=== PATIENT | female | born 1970 | race Caucasian/White ===

== ENCOUNTER 2023-12-23 11:32 | Outpatient (CLI) | payer BC, SELFPAY ==
--- NOTE | 2023-12-23 | XR_ITS ---
FINAL REPORT CLINICAL HISTORY: LUMBAGO WITH SCIATICA, RT SIDE leg pain FINDINGS: Five views were obtained. There is no acute fracture. Alignment is within normal limits. The disc spaces are maintained. IMPRESSION: No acute process. Reviewed, Interpreted and Dictated by Ita Lassiter MD Transcribed by Airam Brown Authenticated and [facility]
== END 2023-12-23 23:59 | disposition home or self-care (01) ==
LOC: RAD 11:38
PROVIDERS: PCP Family Medicine; Visit Provider Family Medicine
DX: M54.41 Lumbago with sciatica, right side (principal)
CPT/HCPCS: 72110

== ENCOUNTER 2023-12-27 16:41 | Outpatient (CLI) | payer BC, SELFPAY | END 2023-12-27 23:59 | disposition home or self-care (01) | LOC: RAD 16:42 | PROVIDERS: PCP Family Medicine; Visit Provider Family Medicine | DX: Z12.31 Encounter for screening mammogram for malignant neoplasm of breast (principal) ==

== ENCOUNTER 2024-06-28 12:40 | Outpatient (CLI) | payer BC, SELFPAY ==
--- NOTE | 2024-06-28 12:47 | XR_ITS ---
FINAL REPORT CLINICAL HISTORY: PAIN FINDINGS: Right wrist Three views were obtained. There is no fracture or dislocation. There are mild degenerative changes at the radial aspect of the wrist. No soft tissue abnormality is identified. IMPRESSION: Mild degenerative changes as above. Reviewed, Interpreted and Dictated by Evaristo Stark III, MD Transcribed by Airam Brown Authenticated and . [facility]
--- NOTE | 2024-06-28 12:47 | XR_ITS ---
FINAL REPORT CLINICAL HISTORY: PAIN FINDINGS: Left wrist Three views were obtained. There is no fracture or dislocation. There are mild degenerative changes of the first carpometacarpal joint. No soft tissue abnormality is identified. IMPRESSION: Mild degenerative changes as above. Reviewed, Interpreted and Dictated by Evaristo Stark III, MD Transcribed by Airam Brown Authenticated and [facility]
== END 2024-06-28 23:59 | disposition home or self-care (01) ==
LOC: RAD 12:44
PROVIDERS: PCP Family Medicine; Visit Provider Orthopaedic Surgery
DX: M25.531 Pain in right wrist (principal); M25.532 Pain in left wrist
CPT/HCPCS: 73110

== ENCOUNTER 2024-12-22 13:22 | Outpatient (CLI) | payer BC, SELFPAY ==
[2024-12-22 13:35] VITALS: BMI 41.1
--- NOTE | 2024-12-22 13:48 | ECG_ITS ---
APPROVED REPORT Exam: Resting ECG HR:103 bpm ECG Measurements Heart Rate 103 AXES WI 162 P 52 QRSd 80 QRS 0 QT 325 T 35 QTc 385 Conclusion SINUS TACHYCARDIA LOW QRS VOLTAGE IN PRECORDIAL LEADS [QRS DEFLECTION < 1.0 mV IN CHEST LEADS] ABNORMAL RHYTHM ECG UNCONFIRMED REPORT Electronically signed by : Abdon Richardson MD 12/24/2024 08:03:12
[2024-12-22 14:01] LABS: Basophils # 0.1 K/mm3 (0-0.2); Basophils % 0.6 % (0.1-2.0); Eosinophils # 0.1 Kmm3 (0.0-0.4); Eosinophils % 0.9 % (0.1-12.0); Hematocrit 43.2 % (37.0-47.0); Hemoglobin 14.4 g/dL (12.2-16.2); Lymphocytes % 17.9 % (10-50); Mean Corpuscular HGB Conc 33.3 g/dL (31.8-35.4); Mean Corpuscular Hemoglobin 29.4 pg (27.0-31.2); Mean Corpuscular Volume 88.3 fl (81-99); Mean Platelet Volume 9.9 fl (7.4-10.4); Monocytes # 0.6 K/mm3 (0.1-1.0); Monocytes % 5.5 % (1.7-9.3); Neutrophils # 8.5 K/mm3 (1.8-7.8); Neutrophils % 74.6 % (37.0-80.0); Nucleated Red Blood Cells # 0 10^3/uL; Nucleated Red Blood Cells % 0 %; Platelet Count 337 K/mm3 (142-424); Red Blood Count 4.89 M/mm3 (4.20-5.40); Red Cell Distribution Width 12.7 % (11.5-17.5); Red Cell Distribution Width-SD 41.3 fL; White Blood Count 11.4 K/mm3 (4.8-10.8)
[2024-12-22 14:14] LABS: Anion Gap 8.6 mEq/L (5-15); Blood Urea Nitrogen 12 mg/dl (7-17); Calcium 10.6 mg/dl (8.4-10.2); Carbon Dioxide 26 mmol/L (22.0-30.0); Chloride 106 mmol/L (98-107); Creatinine Clearance Estimated 150 mL/min (50-200); Estimated Glomerular Filt Rate 88 ml/min (>60); GFR (African American) 106 ML/MIN (>60); Glucose 87 mg/dl (74-100); Potassium 3.6 mmoL/L (3.5-5.1); Sodium 137 mmol/L (136-145)
== END 2024-12-22 23:59 | disposition home or self-care (01) ==
LOC: PREOP 13:23
PROVIDERS: PCP Family Medicine; Visit Provider Orthopaedic Surgery
DX: Z01.810 Encounter for preprocedural cardiovascular examination (principal); Z01.812 Encounter for preprocedural laboratory examination; R00.0 Tachycardia, unspecified; R94.31 Abnormal electrocardiogram [ECG] [EKG]
CPT/HCPCS: 80048; 85025; 93005

== ENCOUNTER 2024-12-27 08:27 | Day surgery (SDC) | payer BC, SELFPAY ==
[2024-12-22 14:50] VITALS: BMI 41.1
[2024-12-27 09:09] VITALS: BP 132/79; PULSE 69; RESP 17; TEMP 36.3; O2SAT 99
[2024-12-27] MEDS: LACTATED RINGERS 1000ML 1,000 ML 100 ML IV (09:18)
--- NOTE | 2024-12-27 10:08 | P.PNANES_ITS ---
[facility] Disclaimer: The information contained in this section may have been updated after the patient was seen, as this information can be updated by other users. Medical History CLAUDINE on CPAP Hypertension Surgical History History of hysterectomy History of anal fistulotomy History of tubal ligation History of section History of eye surgery Family History Other Family history of cancer Family history of diabetes mellitus Social History Smoking Status: Never smoker alcohol intake: never substance use type: denies use current occupational status: unemployed Travel in the last 8 weeks?: None [facility] Anesthesia Checklist Patient Identification Patient Identification: Arm Band Structural Data Admitted From: Home Planned Operative Procedure/s: Right Carpal Tunnel Release Consent for Planned Operative Procedure(s) Verified: Yes Verified Documents: Surgical Consent and History and Physical NPO Status Verified Time NPO: 00:00 Additional verifications Anesthesia Reactions: No Hx Blood Transfusions: No Blood Transfusion Reaction: No Airway Assessment Mallampati Score:: Class II C-Spine Mobility Assessed: Yes TMJ Mobility Assessed: Yes Dentition: Good Dentition Neurological Assessment Level of Consciousness: Awake, Alert and Appropriate Anesthesia Plan Anesthesia Risk discussed: Yes Anesthesia Plan: Verified ASA Class: III Anesthesia Type: General
[2024-12-27] MEDS: LIDOCAINE 1% W/EPI 1:100,000 20ML VIAL 20 ML (10:53)
[2024-12-27] MEDS: CEFAZOLIN SODIUM 2 GM in 0.9 % SODIUM CHLORIDE 100 ML IV (10:54)
[2024-12-27 11:16] VITALS: BP 123/77; PULSE 72; RESP 16; TEMP 36.1; O2SAT 94
--- NOTE | 2024-12-27 11:22 | EXP.OP.NOTE ---
Date of procedure: 12/27/24 Pre-op Diagnosis:: Right carpal tunnel syndrome Post-op Diagnosis:: Same Procedure performed:: Right endoscopic carpal tunnel release Surgeon:: Lukas Pinon DO Cat Operator(s):: [employer] Anesthesia: MAC and local Estimated blood loss (mL): 0 Operative findings:: See dictation Operative note:: Patient identified preoperatively. Right wrist marked with yes my initials. Transported operative suite placed upon operating bed. Patient given sedation the right upper extremity was prepped and draped in normal sterile fashion. Once prepped and draped final operative timeout performed to identify proper patient procedure and extremity. Everyone involved in the case agreed. There is no counter indications to beginning. She did receive preoperative antibiotics. Marking pen was used to make planned incision over the volar wrist crease. Esmarch was used to exsanguinate the extremity. Pneumatic tourniquet inflated to 250 mmHg. Skin knife is used to incise through skin retractors were placed and dissection was taken down to identify the most proximal aspect the transverse carpal ligament once identified the smaller dilator followed by the larger dilator was placed into the carpal tunnel. This was followed with a 4.0 mm sled into the carpal tunnel for the camera the camera was introduced in the transverse carpal ligament clearly seen superiorly within the [id number]. Hook was utilized to identify the most distal aspect the transverse carpal ligament rasp was used to remove soft tissue from the undersurface and a hook blade was placed for full release of the transverse carpal ligament under direct visualization. Once released irrigation performed. Local anesthesia injected around the incision site. Incision closed with Monocryl stitch Steri-Strips sterile hand dressing placed. Patient waken sedation taken recovery in stable condition. Condition: stable Disposition: PACU Complications:: None apparent
[2024-12-27 11:31] VITALS: BP 100/59; PULSE 69; RESP 16; O2SAT 94
[2024-12-27 11:46] VITALS: BP 120/64; PULSE 65; RESP 16; O2SAT 97
== END 2024-12-27 11:55 | disposition home or self-care (01) ==
PROVIDERS: PCP Family Medicine; Visit Provider Orthopaedic Surgery
PROC: (CPT 64721; principal; 2024-12-27 10:15)
DX: G56.01 Carpal tunnel syndrome, right upper limb (principal)
CPT/HCPCS: 29848; 96374; J0690; J2250; J3010; J7120

== ENCOUNTER 2025-02-07 10:44 | Outpatient (CLI) | payer BC, SELFPAY ==
--- OUTSIDE RECORDS SUMMARY | 2025-01-01 12:40 | XMS_ITS | Encounter Summary ---
Author Organization [facility] Address [address] [place] [address] Care Team Providers Care Marine Resource Economist Name Role Phone Megan Fitzgerald MD Primary Care Provider [phone] Reason for Visit * Reason Comments Follow-up Follow Up: Medicatio n, Pt did not refill Mobic and has stopped taking Lasix. Needs bp and other medication refill. Care Gap Closure Pt declines Covid va ccine Encounter Details Date Type Department Care Team (Latest Contact Info) Description 01/01/2025 12:40 PM EDT Office Visit [facility] [address] [place] [address] Megan Fitzgerald MD [address] [place] [address] Essential (primary) hypertension (Primary Dx); Hyperlipidemia, unspecified hyperlipidemia type; Need for shingles vaccine; Edema of both lower extremities; Chronic pain of right lower extremity Social History Tobacco Use Types Packs/Day Years Used Date Smoking Tobacco: Never Smokeless Tobacco: Never Alcohol Use Standard Drinks/Week Comments Not Currently 0 (1 standard drink = 0.6 oz pur e alcohol) Humiliation, Afraid, Rape, and Kick questionnair e Answer Date Recorded Within the last year, have y ou been afraid of your partner or ex-partner? No 10/24/2024 Within the last year, have y ou been humiliated or emotionally abused in other ways by your partner or ex-partner? No Within the last year, have y ou been kicked, hit, slapped, or otherwise physically hurt by your partner or ex-partner? No 10/24/2024 Within the last year, have y ou been raped or forced to have any kind of sexual activity by your partner or ex-partner? No 10/24/2024 PHQ-2 Answer Date Recorded Patient Health Questionnaire-2 Score 0 01/01/2025 Hunger Vital Sign Answer Date Recorded Within the past 12 months, y ou worried that your food would run out before you got the money to buy more. Never true 10/25/19 25 Within the past 12 months, t he food you bought just didn't last and you didn't have money to get more. Never true 10/24/2024 PRAPARE - Transportation Answer Date Re corded In the past 12 months, has l ack of transportation kept you from medical appointments or from getting medications? No 11/2024 In the past 12 months, has l ack of transportation kept you from meetings, work, or from getting things needed for daily living? No 10/24/2024 Housing Stability Vital Sign Answer Padilla e Recorded In the last 12 months, was t here a time when you were not able to pay the mortgage or rent on time? No 06/21/2024 In the last 12 months, how many places have you lived? 2 06/21/2024 In the last 12 months, was t here a time when you did not have a steady place to sleep or slept in a snf (including now)? No 06/21/2024 PHQ-9 Answer Date Recorded Patient Health Questionnaire-9 Score 0 01/01/2025 Housing Stability Vital Sign Answer Padilla e Recorded In the last 12 months, was t here a time when you were not able to pay the mortgage or rent on time? No 10/24/2024 In the past 12 months, how m any times have you moved where you were living? 0 10/24/2024 At any time in the past 12 m [facility], were you homeless or living in a snf (including now)? No 10/24/2024 Utilities Answer Date Recorded In the past 12 months has th e electric, gas, oil, or water company threatened to shut off services in your home? No 10/24/2024 Comments No Sex and Gender Information Value Date Recorded Sex Assigned at Not on file Legal Sex Female 3:40 PM EDT Gender Identity Not on file Sexual Orientation Not on file documented as of this encounter Last Filed Vital Signs Vital Sign Reading Time Taken Comments Blood Pressure 106/70 01/01/2025 12:31 PM EDT Pulse 68 01/01/2025 12:31 PM EDT Temperature 36.8 C (98.2 F) 01/01/2025 12:31 PM EDT Respiratory Rate 18 01/01/2025 12:31 PM EDT Oxygen Saturation 100% 01/01/2025 12:31 PM EDT Inhaled Oxygen Concentration - - Weight 105 kg (230 lb 13.2 oz) 01/01/2025 12:31 PM EDT Height 157.5 cm (5' 2 ) 01/01/2025 12:31 PM EDT Body Mass Index 42.22 01/01/2025 12:31 PM EDT documented in this encounter Functional Status * Over the past 2 weeks, how often have you been bothered by any of the following problems? Question Answer Date of Assessment Author Little interest or pleasure in doing things Not at all 01/01/2025 12:40 PM EDT Yesenia Olsen Feeling down, depressed, or hopeless Not at all 01/01/2025 12:40 PM EDT Yesenia Olsen Patient Health Questionnaire -2 Score 0 01/01/2025 12:40 PM EDT Yesenia Olsen * Question Answer Date of Assessment Author Trouble falling or staying asleep, or sleeping too much Not at all 01/01/2025 12:40 PM EDT Yesenia Olsen Feeling tired or having bryson le energy Not at all 01/01/2025 12:40 PM EDT Yesenia Olsen Poor appetite or overeating Not at all 01/01/2025 12 :40 PM EDT Yesenia Olsen Feeling bad about yourself - or that you are a failure or have let yourself or your family down Not at all 01/01/2025 12:40 PM EDT Yesenia Eduardo Trouble concentrating on thi ngs, such as reading the newspaper or watching television Not at all 01/01/2025 12:40 PM EDT Yesenia Olsen Moving or speaking so slowly that other people could have noticed? Or the opposite - being so fidgety or restless that you have been moving around a lot more than usual. Not at all 01/01/2025 12:40 PM EDYesenia Vargas Thoughts that you would be better off or hurting yourself in some way Not at all 01/01/2025 12:40 PM EDYesenia Vargas Patient Health Questionnaire -9 Score 0 01/01/2025 12:40 PM EDT Yesenia Olsen * Calculated C-SSRS Risk Score (Lifetime/Recent) Answer Date of Assessment Author No Risk Indicated 01/01/2025 12:41 PM Yesenia Rea * If you checked off any problems on this questionnaire so far, Question Answer Date of Assessment Author How difficult have these problems made it for you to do your work, take care of things at home, or get along with other people? Not difficult at all 01/01/2025 12:40 PM Yesenia Rea * Question Answer Date of Assessment Author 1. Wish to be (Past 1 Month) No 025 12:41 PM Yesenia Rea 2. Non-Specific Active Suici montez Thoughts (Past 1 Month) No 01/01/2025 12:41 PM EDT Yasmine Olsen P 6. Suicidal Behavior (Lifetime) No 12:41 PM EDYesenia Vargas documented as of this encounter Miscellaneous Notes * Clinician Note - Ghazal Pinon RN - 01/01/2025 12:40 PM EDT Pre-Visit Review Note The following information was reviewed with patient via phone prior to appointment with Megan Fitzgerald MD on 01/01/25. Allergies Reviewed and up-to-date Immunizations Pended immunizations discussed with patient: Shingles (2nd dose) Additional immunizations discussed with patient: Covid-patient declines at this time Pneumococcal-patient would like to discuss with provider at office visit. Medications Medications requiring provider review: Docusate sodium-patient states that she is no longer taking, flagged for review for removal Rosuvastatin-patient states that she is unsure if she is supposed to be taking this. Please advise. Meloxicam-patient states that she does not feel like this medication is helpful in reducing her pain and would like to discuss discontinuing. Furosemide-patient unsure if she needs to continue this medication. She would like to discuss with provider at office visit. Potassium chloride-patient would like to get updated labs to see if this prescription is still needed. Please advise. Pended medications needing to be refilled: Atorvastatin Potassium chloride Meloxicam Furosemide Gabapentin Clinical Intervention: Corrected Rx directions, Immunization recommendations, Lab work needed (A1c,lipids, etc), and Medication Adherence See above Preferred Pharmacy: referral sent to [facility] Additional Notes: Patient verbalized understanding of Pre-Visit Review. Patient to follow up with provider at upcoming clinic visit. Ghazal Pinon RN,BSN Pharmacy Patient Support Services * Progress Notes - Megan Fitzgerald MD - 01/01/2025 12:40 PM EDT Subjective Patient ID: Noemi Cervantes is a 54 y.o. female. Chief Complaint Patient presents with Follow-up Follow Up: Medication, Pt did not refill Mobic and has stopped taking Lasix. Needs bp and other medication refill. Care Gap Closure Pt declines Covid vaccine HPI Pt here to f/u htn, hyperlipidemia, sleep apnea, chronic limb pain and chronic edema. She also 4 days ago had her carpal tunnel release on the right. She desires shingles shot today and also is fasting for her bloodwork. Current Medications[1] Pertinent review of systems has been performed and negative except as noted in HPI. Pertinent areas of the chart reviewed include social, family, past medical and surgical history. Objective Physical Exam Constitutional: Appearance: Normal appearance. She is obese. HENT: Head: Normocephalic and atraumatic. Right Ear: External ear normal. Left Ear: External ear normal. Nose: Nose normal. Mouth/Throat: Mouth: Mucous membranes are moist. Pharynx: Oropharynx is clear. Eyes: Extraocular Movements: Extraocular movements intact. Pupils: Pupils are equal, round, and reactive to light. Cardiovascular: Rate and Rhythm: Normal rate and regular rhythm. Heart sounds: Normal heart sounds. Pulmonary: Effort: Pulmonary effort is normal. Breath sounds: Normal breath sounds. Abdominal: General: Bowel sounds are normal. Palpations: Abdomen is soft. Musculoskeletal: Cervical back: Normal range of motion. Right lower leg: No edema. Left lower leg: No edema. Skin: General: Skin is warm and dry. Coloration: Skin is not jaundiced. Findings: No rash. Neurological: Mental Status: She is alert. Psychiatric: Mood and Affect: Mood normal. Behavior: Behavior normal. Thought Content: Thought content normal. Assessment/Plan Diagnoses and all orders for this visit: Essential (primary) hypertension - Lipid Profile, Plasma - Thyroid Stimulating Hormone, Plasma - Comprehensive Metabolic Panel, Plasma - CBC and Differential - Hemoglobin A1c Hyperlipidemia, unspecified hyperlipidemia type - Lipid Profile, Plasma - Thyroid Stimulating Hormone, Plasma - Comprehensive Metabolic Panel, Plasma - CBC and Differential - Hemoglobin A1c Need for shingles vaccine - zoster vaccine-recombinant adjuvanted (Shingrix) 50 MCG/0.5ML vaccine 50 mcg Edema of both lower extremities - Thyroid Stimulating Hormone, Plasma - Comprehensive Metabolic Panel, Plasma Other orders - irbesartan-hydroCHLOROthiazide (Avalide) 300-12.5 MG tablet; Take 1 tablet by mouth daily. 1. Essential (primary) hypertension (Primary) Stable labs today. Refilled med - Lipid Profile, Plasma - Thyroid Stimulating Hormone, Plasma - Comprehensive Metabolic Panel, Plasma - CBC and Differential - Hemoglobin A1c 2. Hyperlipidemia, unspecified hyperlipidemia type Labs today to see if improved with statin - Lipid Profile, Plasma - Thyroid Stimulating Hormone, Plasma - Comprehensive Metabolic Panel, Plasma - CBC and Differential - Hemoglobin A1c 3. Need for shingles vaccine Administer today - zoster vaccine-recombinant adjuvanted (Shingrix) 50 MCG/0.5ML vaccine 50 mcg 4. Edema of both lower extremities Labs today - Thyroid Stimulating Hormone, Plasma - Comprehensive Metabolic Panel, Plasma 5. Chronic pain of right lower extremity Has neuro appt pending. Consider pain management. [1] Current Outpatient Medications: furosemide (Lasix) 20 MG tablet, Take 1 tablet (20 mg) by mouth in the morning., Disp: 30 tablet, Rfl: 1 furosemide (Lasix) 40 MG tablet, Take 1 tablet by mouth daily., Disp: , Rfl: gabapentin (Neurontin) 300 MG capsule, Take 1 capsule by mouth in the morning and 1 capsule in the evening and 1 capsule before bedtime., Disp: 90 capsule, Rfl: 1 irbesartan-hydroCHLOROthiazide (Avalide) 300-12.5 MG tablet, Take 1 tablet by mouth daily., Disp: 30 tablet, Rfl: 11 potassium chloride CR (Klor-Con) 10 MEQ ER tablet, Take 1 tablet (10 mEq) by mouth 1 (one) time each day., Disp: 90 tablet, Rfl: 0 rosuvastatin (Crestor) 10 MG tablet, Take 1 tablet (10 mg) by mouth Daily., Disp: , Rfl: Docusate Sodium (DSS) 100 MG capsule, Take 1 capsule by mouth 2 (two) times a day. (Patient not taking: Reported on 01/01/2025), Disp: , Rfl: No current facility-administered medications for this visit. documented in this encounter Plan of Treatment Upcoming Encounters Date Type Department Care Team (Late st Contact Info) Description 04/03/2025 11:20 AM EDT Office Visit [address] [address] Megan Fitzgerald MD [address] [place] [phone] documented as of this encounter Procedures Procedure Name Priority Date/Time Associated Diagnosis Comments CBC WITH AUTO DIFFERENTIAL Routine 01/01/2025 1:25 PM EDT Essential (primary) hypertension Hyperlipidemia, unspecified hyperlipidemia type TSH Routine 01/01/2025 1:25 PM EDT Essential (primary) hypertension Hyperlipidemia, unspecified hyperlipidemia type Edema of both lower extremities HEMOGLOBIN A1C Routine 01/01/2025 1:25 PM EDT Essential (primary) hypertension Hyperlipidemia, unspecified hyperlipidemia type LIPID PROFILE, PLASMA Routine 01/01/2025 1:25 PM EDT Essential (primary) hypertension Hyperlipidemia, unspecified hyperlipidemia type COMPREHENSIVE METABOLIC PANEL, PLASMA Routine 01/01/2025 1:25 PM EDT Essential (primary) hypertension Hyperlipidemia, unspecified hyperlipidemia type Edema of both lower extremities documented in this encounter Results * Hemoglobin A1c (01/01/2025 1:25 PM EDT) Hemoglobin A1c 5.4 <5.7 % 01/01/2025 6:49 PM EDT [facility] Blood Venous blood specimen / Unknown Venipuncture / Unknown 01/01/2025 1:25 PM EDT 01/01/2025 1:25 PM EDT Narrative [facility] - 01/01/2025 6:49 PM EDT HA1C Interpretive Data: Diagnosis of Diabetes: Diabetic > or = 6.5% Pre-diabetic 5.7 to 6.4% Non-diabetic < or = 5.6% Glycemic Targets for Type I and Type II Diabetics: Non- Adults <7.0% Adults <6.0% Children and Adolescents <7.5% Source: [place] [employer]. Standards of medical care in diabetes,2017. Diabetes Care.2017:40 (suppl 1):S1-S135. us Megan Fitzgerald MD LAB BLOOD ORDERABLES Final Result [facility] [address] [place] [address] * CBC and Differential (01/01/2025 1:25 PM EDT) WBC Count 7.30 3.70 - 10.30 10*3/uL LAB HEMATOLOGY METHOD 01/01/2025 6:12 PM EDT [facility] RBC Count 4.86 3.90 - 5.20 10*6/uL LAB HEMATOLOGY METHOD 01/01/2025 6:12 PM EDT [facility] HGB 14.0 11.2 - 15.7 g/dL LAB HEMATOLOGY METHOD 01/01/2025 6:12 PM EDT [facility] HCT 44.4 34.0 - 45.0 % LAB HEMATOLOGY METHOD 01/01/2025 6:12 PM EDT [facility] Platelet Count 323 155 - 369 10*3/uL LAB HEMATOLOGY METHOD 01/01/2025 6:12 PM EDT [facility] MCV 91 79 - 98 fL LAB HEMATOLOGY METHOD 01/01/2025 6:12 PM EDT [facility] MCH 28.8 26.0 - 32.0 pg LAB HEMATOLOGY METHOD 01/01/2025 6:12 PM EDT [facility] MCHC 31.5 30.7 - 35.5 g/dL LAB HEMATOLOGY METHOD 01/01/2025 6:12 PM EDT [facility] RDW 12.9 11.5 - 14.5 % LAB HEMATOLOGY METHOD 01/01/2025 6:12 PM EDT [facility] MPV 9.8 8.8 - 12.5 fL LAB HEMATOLOGY METHOD 01/01/2025 6:12 PM EDT [facility] nRBC 0.0 <=0.0 per 100 WBCs LAB HEMATOLOGY METHOD 01/01/2025 6:12 PM EDT [facility] Differential Type Automated LAB HEMATOLOGY METHOD 01/01/2025 6:12 PM EDT [facility] Neutrophils % 64 % LAB HEMATOLOGY METHOD 01/01/2025 6:12 PM EDT [facility] Lymphocytes % 27 % LAB HEMATOLOGY METHOD 01/01/2025 6:12 PM EDT [facility] Monocytes % 6 % LAB HEMATOLOGY METHOD 01/01/2025 6:12 PM EDT [facility] Eosinophils % 2 % LAB HEMATOLOGY METHOD 01/01/2025 6:12 PM EDT [facility] Basophils % 1 % LAB HEMATOLOGY METHOD 01/01/2025 6:12 PM EDT [facility] Immature Granulocytes % 0 % LAB HEMATOLOGY METHOD 01/01/2025 6:12 PM EDT [facility] Neutrophils Absolute 4.70 1.60 - 6.10 10*3/uL LAB HEMATOLOGY METHOD 01/01/2025 6:12 PM EDT [facility] Lymphocytes Absolute 1.97 1.20 - 3.90 10*3/uL LAB HEMATOLOGY METHOD 01/01/2025 6:12 PM EDT [facility] Monocytes Absolute 0.43 0.30 - 0.90 10*3/uL LAB HEMATOLOGY METHOD 01/01/2025 6:12 PM EDT [facility] Eosinophils Absolute 0.11 0.00 - 0.50 10*3/uL LAB HEMATOLOGY METHOD 01/01/2025 6:12 PM EDT [facility] Basophils Absolute 0.06 0.00 - 0.10 10*3/uL LAB HEMATOLOGY METHOD 01/01/2025 6:12 PM EDT [facility] Immature Granulocytes Absolute 0.03 0.00 - 0.06 10*3/uL LAB HEMATOLOGY METHOD 01/01/2025 6:12 PM EDT [facility] Blood Venous blood specimen / Unknown Venipuncture / Unknown 01/01/2025 1:25 PM EDT 01/01/2025 1:25 PM EDT Narrative [facility] - 01/01/2025 6:12 PM EDT Therapeutic decision making should be based on absolute values, rather than percentages. us Megan Fitzgerald MD LAB BLOOD ORDERABLES Final Result [facility] [address] [place] [address] * (ABNORMAL) Comprehensive Metabolic Panel, Plasma (01/01/2025 1:25 PM EDT) Glucose, Plasma 82 74 - 99 mg/dL 01/01/2025 6:26 PM EDT [facility] BUN, Plasma 12 7 - 21 mg/dL 01/01/2025 6:26 PM EDT [facility] Creatinine, Plasma 0.60 0.60 - 1.10 mg/dL 01/01/2025 6:26 PM EDT [facility] BUN/Creatinine Ratio 20 01/01/2025 6:26 PM EDT [facility] Sodium, Plasma 141 136 - 145 mmol/L 01/01/2025 6:26 PM EDT [facility] Potassium, Plasma 3.7 3.6 - 4.9 mmol/L 01/01/2025 6:26 PM EDT [facility] Chloride, Plasma 103 97 - 107 mmol/L 01/01/2025 6:26 PM EDT [facility] CO2, Plasma 26 22 - 29 mmol/L 01/01/2025 6:26 PM EDT [facility] Anion Gap 12 6 - 16 mmol/L 01/01/2025 6:26 PM EDT [facility] Total Calcium, Plasma 10.4(H) 8.9 - 10.2 mg/dL 01/01/2025 6:26 PM EDT [facility] Total Protein 7.1 6.3 - 7.9 g/dL 01/01/2025 6:26 PM EDT [facility] Albumin, Plasma 4.3 3.5 - 5.2 g/dL 01/01/2025 6:26 PM EDT [facility] AST, Plasma 28 10 - 35 U/L 01/01/2025 6:26 PM EDT [facility] Comment:Hemolyzed, result ma y be falsely increased. ALT, Plasma 39(H) 10 - 35 U/L 01/01/2025 6:26 PM EDT [facility] Alkaline Phosphatase, Plasma 104 35 - 104 U/L 01/01/2025 6:26 PM EDT [facility] Total Bilirubin, Plasma 0.3 0.2 - 1.1 mg/dL 01/01/2025 6:26 PM EDT [facility] eGFRcr 107.5 mL/min/1.7 3m*2 01/01/2025 6:26 PM EDT [facility] Comment:Reported eGFRcr in m L/min/1.73m2 is based the CKD-EPI 2020 equation that does not use a race coefficient. Blood Venous blood specimen / Unknown Venipuncture / Unknown 01/01/2025 1:25 PM EDT 01/01/2025 1:25 PM EDT us Megan Fitzgerald MD LAB BLOOD ORDERABLES Final Result [facility] [address] [place] [address] * Thyroid Stimulating Hormone, Plasma (01/01/2025 1:25 PM EDT) Thyroid Stimulating Hormone, Plasma 2.03 0.40 - 4.20 uIU/mL 01/01/2025 6:26 PM EDT [facility] Blood Venous blood specimen / Unknown Venipuncture / Unknown 01/01/2025 1:25 PM EDT 01/01/2025 1:25 PM EDT Narrative [facility] - 01/01/2025 6:26 PM EDT Trimester Specific Ranges TSH ( IU/mL) 1st Trimester 0.1 - 3.0 2nd Trimester 0.19 - 4.06 3rd Trimester 0.3 - 3.7 us Megan Fitzgerald MD LAB BLOOD ORDERABLES Final Result [facility] [address] [place] [address] * (ABNORMAL) Lipid Profile, Plasma (01/01/2025 1:25 PM EDT) Cholesterol, Plasma 178 <200 mg/dL 01/01/2025 6:26 PM EDT [facility] Comment: Cholesterol Reference Range (age >17 years): Desirable <200 mg/dL Borderline 200 to 239 mg/dL Undesirable >239 mg/dL HDL 40(L) >=50 mg/dL 01/01/2025 6:26 PM EDT [facility] Comment: HDL Cholesterol Reference Ranges (age >17 years): Female, acceptable > or = 50 mg/dL Male, acceptable > or = 40 mg/dL Triglycerides, Plasma 160(H) <150 mg/dL 01/01/2025 6:26 PM EDT [facility] Comment: Triglyceride Reference Range (age >17 years): Desirable: <150 mg/dL Borderline high: 150 to 199 mg/dL High: 200 to 499 mg/dL Very high: >499 mg/dL Increased risk of pancreatitis: >1000 mg/dL Cholesterol/HDL Ratio 4 01/01/2025 6:26 PM EDT [facility] LDL, Calculated 110(H) <100 mg/dL 6:26 PM EDT [facility] Comment: LDL Cholesterol Reference Range (age >17 years): Optimal: <100 mg/dL Near or above optimal: 100 - 129 mg/dL Borderline high: 130 - 159 mg/dL High: 160 - 189 mg/dL Very high: >189 mg/dL LDL Cholesterol Reference Range (age <18 years): Desirable: <110 mg/dL Borderline: 110 - 129 mg/dL Undesirable: >130 mg/dL LDL Cholesterol is calculated using the Sanders/NIH equation. Fasting greater than or equal to 12 hours? No 01/01/2025 6:26 PM EDT [facility] Blood Venous blood specimen / Unknown Venipuncture / Unknown 01/01/2025 1:25 PM EDT 01/01/2025 1:25 PM EDT us Megan Fitzgerald MD LAB BLOOD ORDERABLES Final Result [facility] [address] [place] [address] documented in this encounter Visit Diagnoses Diagnosis Essential (primary) hypertension- Primary Unspecified essential hypertension Hyperlipidemia, unspecified hyperlipidemia type Need for shingles vaccine Need for prophylactic vaccination and inoculation against varicella Edema of both lower extremities Chronic pain of right lower extremity documented in this encounter Additional Health Concerns Assessment Noted Time PHQ-9 Depression Total Score: 0 01/02/20 25 12:40 PM EDT A Body Mass Index follow-up plan has been documented for the patient 01/01/2025 1:29 PM EDT documented as of this encounter Care Teams Marine Resource Economist Relationship Specialty Start Date End Date Megan Fitzgerald MD [address] [place] [phone] PCP - General 06/28/24 documented as of this encounter
--- OUTSIDE RECORDS SUMMARY | 2025-02-07 10:50 | XMS_ITS | Clinical Summary ---
Author Organization [facility] Address [address] [place] [address] Care Team Providers Care Museum Docent Name Role Phone Jayesh Fitzgerald MD Primary Care Provider [phone] Allergies No known active allergies Medications Docusate Sodium (DSS) 100 MG capsule Take 1 capsule by mouth 2 (two) times a day. Active potassium chloride CR (Klor-Con) 10 MEQ ER tablet Take 1 tablet (10 mEq) by mouth 1 (one) time each day. 90 tablet 09/12/2024 Active rosuvastatin (Crestor) 10 MG tablet Take 1 tablet (10 mg) by mouth Daily. Active furosemide (Lasix) 20 MG tablet Take 1 tablet (20 mg) by mouth in the morning. 30 tablet 1 10/31/2024 Active furosemide (Lasix) 40 MG tablet Take 1 tablet by mouth daily. 11/08/2024 Active gabapentin (Neurontin) 300 MG capsule Take 1 capsule by mouth in the morning and 1 capsule in the evening and 1 capsule before bedtime. 90 capsule 1 12/06/2024 Active irbesartan-hydr oCHLOROthiazide (Avalide) 300-12.5 MG tablet Take 1 tablet by mouth daily. 30 tablet 11 01/01/2025 Active Active Problems Problem Noted Date Diagnosed Date Class III obesity with body mass index (BMI) of 40.0 or higher 06/28/2024 Encounters Date Type Department Care Team Description 01/02/2025 Results Follow-Up [facility] [address] [place] [address] Jayesh Fitzgerald MD 01/01/2025 12:40 PM EDT Office Visit [facility] [address] [place] [address] Jayesh Fitzgerald MD Essential (primary) hypertension (Primary Dx); Hyperlipidemia, unspecified hyperlipidemia type; Need for shingles vaccine; Edema of both lower extremities; Chronic pain of right lower extremity 01/01/2025 Travel 12/28/2024 Telephone [facility] [address] [place] [address] Ghazal Pinon RN 12/28/2024 Education [facility] [address] [place] [address] Ghazal Pinon RN 12/25/2024 Travel 12/06/2024 Refill [facility] [address] [place] [address] Jayesh Fitzgerald MD 11/20/2024 6:35 PM EDT - 11/20/2024 10:45 PM EDT Emergency [facility] [address] [place] [address] George Alcantara MD Lower extremity edema (Primary Dx); Pain of right lower extremity Discharge Disposition: Home or Self Care 11/20/2024 1:00 PM EDT Office Visit [facility] [address] [place] [address] Jayesh Fitzgerald MD Leg pain, bilateral (Primary Dx) 11/20/2024 Travel 11/17/2024 Results Follow-Up [facility] [address] [place] [address] Jayesh Fitzgerald MD 11/17/2024 Orders Only [facility] [address] [place] [address] Jayesh Fitzgerald MD Lumbosacral radiculopathy (Primary Dx) 11/16/2024 Outside Procedure External Location [address] [place] [address] Jayesh Fitzgerald MD 11/16/2024 Telephone [facility] [address] [place] [address] Jayesh Fitzgerald MD HCN Clinical Concern/Question 11/13/2024 Orders Only [facility] [address] [place] [address] Jayesh Fitzgerald MD Lumbosacral radiculopathy (Primary Dx); Herpes labialis 11/13/2024 Telephone [facility] [address] [place] [address] Jayesh Fitzgerald MD HCN Clinical Concern/Question from Last 3 Months Immunizations Immunization Administration Dates Next Due Influenza, injectable, quadrivalent, preservativ e free 05/17/2023,08/11/2017 Influenza, seasonal, injectable, preservative fr ee 07/28/2024 MMR 02/05/2021 Tdap 03/20/2022 Zoster, Recombinant 01/01/2025,07/28/2024 Family History Medical History Relation Name Comments Colon cancer Brother Hypertension Father Throat cancer Father Cancer Mother Cervical cancer Sister Diabetes Sister Relation Name Status Comments Brother Father Mother Sister Social History Tobacco Use Types Packs/Day Years Used Date Smoking Tobacco: Never Smokeless Tobacco: Never Tobacco Cessation:Counseling Given: Not Answered Alcohol Use Standard Drinks/Week Comments Not Currently [...] place to sleep or slept in a residential (including now)? No 06/21/2024 PHQ-9 Answer Date [...] any time in the past 12 m [facility], were you homeless or living in a residential (including now)? No 10/24/2024 Utilities Answer Date Recorded In the past 12 months has th e electric, gas, oil, or water company threatened to shut off services in your home? No 10/24/2024 Comments No Sex and Gender Information Value Date Recorded Sex Assigned at Not on file Legal Sex Female 3:40 PM EDT Gender Identity Not on file Sexual Orientation Not on file Last Filed Vital Signs Vital Sign Reading [...] Mass Index 42.22 01/01/2025 12:31 PM EDT Plan of Treatment Upcoming Encounters Date Type Department Care Team (Late st Contact Info) Description 04/03/2025 11:20 AM EDT Office Visit [facility] [address] [place] [address] Jayesh Fitzgerald MD [address] [place] [address] Health Maintenance Due Date Last Done Comments [facility]-HIV Screening 1970 [facility]-Hepatitis C Screening 1971 [facility]-/Child/Adol SDOH Screenings [address] Colonography 2016 Colonoscopy 2016 FIT-DNA 2016 FIT 2016 FOBT 2016 Sigmoidoscopy 2016 [facility]-Colorectal Cancer Screening 2016 [facility]-Pneumococcal Vaccine: 50+ Years (1 of 1 - PCV) 2021 [id number] Vaccine ( season) 2024 02/01/2021, 01/11/2021 [facility]- SDOH Screenings 04/26/2025 [facility]-Adult SDOH Screenings 04/26/2025 10/24/2024 [facility]-Depression Screening 01/01/2026 01/01/2025, 05/1 09/2024 [facility]-Breast Cancer Screening 07/12/2026 07/12/2024, 0 05/05/2023 [facility]-DTaP,Tdap,and Td Vaccines (2 - Td or Tdap) 03/20/2032 03/20/2022 [facility]-Influenza Vaccine Completed 07/28/2024 , 05/17/2023, 08/11/2017 [facility]-Obesity Intervention Completed 025, 11/20/2024, 10/31/2024, Additional history exists [facility]-Zoster Vaccines Completed 01/01/2025, 4 HPV Vaccines Aged Out No longer eligi ble based on patient's age to complete this topic [facility]-HIB Vaccines Aged Out No longer e ligible based on patient's age to complete this topic [facility]-Hepatitis A Vaccines Aged Out No longer eligible based on patient's age to complete this topic [facility]-Hepatitis B Vaccines Discontinued [facility]-IPV Vaccines Aged Out No longer e ligible based on patient's age to complete this topic [facility]-Rotavirus Vaccines Aged Out No lo nger eligible based on patient's age to complete this topic Procedures Procedure Name Priority Date/Time Associated Diagnosis Comments HEMOGLOBIN A1C Routine 01/01/2025 1:25 PM EDT Essential (primary) hypertension Hyperlipidemia, unspecified hyperlipidemia type CBC WITH AUTO DIFFERENTIAL Routine 01/01/2025 1:25 PM EDT Essential (primary) hypertension Hyperlipidemia, unspecified hyperlipidemia type COMPREHENSIVE METABOLIC PANEL, PLASMA Routine 01/01/2025 1:25 PM EDT Essential (primary) hypertension Hyperlipidemia, unspecified hyperlipidemia type Edema of both lower extremities TSH Routine 01/01/2025 1:25 PM EDT Essential (primary) hypertension Hyperlipidemia, unspecified hyperlipidemia type Edema of both lower extremities LIPID PROFILE, PLASMA Routine 01/01/2025 1:25 PM EDT Essential (primary) hypertension Hyperlipidemia, unspecified hyperlipidemia type VAS US VENOUS DUPLEX LOWER EXTREMITY UNILATERAL STAT 11/20/2024 7:15 PM EDT MR LUMBAR SPINE WO IV CONTRAST 11/16/2024 8:14 AM EDT MAMMOGRAPHY BREAST SCREENING TOMOSYNTHESIS BILATERAL 07/12/2024 9:09 AM EST from Last 3 Months or Most Recently Relevant to Health Maintenance Results * CBC and Differential (01/01/2025 1:25 PM EDT) WBC Count 7.30 3.70 - 10.30 10*3/uL LAB HEMATOLOGY METHOD 01/01/2025 6:12 PM EDT [facility] RBC Count 4.86 3.90 - 5.20 10*6/uL LAB HEMATOLOGY METHOD 01/01/2025 6:12 PM EDT [facility] HGB 14.0 11.2 - 15.7 g/dL LAB HEMATOLOGY METHOD 01/01/2025 6:12 PM EDT [facility] HCT 44.4 34.0 - 45.0 % LAB HEMATOLOGY METHOD 01/01/2025 6:12 PM EDT [facility] Platelet Count 323 155 - 369 10*3/uL LAB HEMATOLOGY METHOD 01/01/2025 6:12 PM EDT [facility] MCV 91 79 - 98 fL LAB HEMATOLOGY METHOD 01/01/2025 6:12 PM EDT [facility] MCH 28.8 26.0 - 32.0 pg LAB HEMATOLOGY METHOD 01/01/2025 6:12 PM EDT [facility] MCHC 31.5 30.7 - 35.5 g/dL LAB HEMATOLOGY METHOD 01/01/2025 6:12 PM EDT [facility] RDW 12.9 11.5 - 14.5 % LAB HEMATOLOGY METHOD 01/01/2025 6:12 PM EDT [facility] MPV 9.8 8.8 - 12.5 fL LAB HEMATOLOGY METHOD 01/01/2025 6:12 PM EDT [facility] nRBC 0.0 <=0.0 per 100 WBCs LAB HEMATOLOGY METHOD 01/01/2025 6:12 PM EDT [facility] Differential Type Automated LAB HEMATOLOGY METHOD 01/01/2025 6:12 PM EDT [facility] Neutrophils % 64 % LAB HEMATOLOGY METHOD 01/01/2025 6:12 PM EDT [facility] Lymphocytes % 27 % LAB HEMATOLOGY METHOD 01/01/2025 6:12 PM EDT [facility] Monocytes % 6 % LAB HEMATOLOGY METHOD 01/01/2025 6:12 PM EDT [facility] Eosinophils % 2 % LAB HEMATOLOGY METHOD 01/01/2025 6:12 PM EDT [facility] Basophils % 1 % LAB HEMATOLOGY METHOD 01/01/2025 6:12 PM EDT [facility] Immature Granulocytes % 0 % LAB HEMATOLOGY METHOD 01/01/2025 6:12 PM EDT [facility] Neutrophils Absolute 4.70 1.60 - 6.10 10*3/uL LAB HEMATOLOGY METHOD 01/01/2025 6:12 PM EDT [facility] Lymphocytes Absolute 1.97 1.20 - 3.90 10*3/uL LAB HEMATOLOGY METHOD 01/01/2025 6:12 PM EDT [facility] Monocytes Absolute 0.43 0.30 - 0.90 10*3/uL LAB HEMATOLOGY METHOD 01/01/2025 6:12 PM EDT [facility] Eosinophils Absolute 0.11 0.00 - 0.50 10*3/uL LAB HEMATOLOGY METHOD 01/01/2025 6:12 PM EDT [facility] Basophils Absolute 0.06 0.00 - 0.10 10*3/uL LAB HEMATOLOGY METHOD 01/01/2025 6:12 PM EDT [facility] Immature Granulocytes Absolute 0.03 0.00 - 0.06 10*3/uL LAB HEMATOLOGY METHOD 01/01/2025 6:12 PM EDT [facility] Blood Venous blood specimen / Unknown Venipuncture / Unknown 01/01/2025 1:25 PM EDT 01/01/2025 1:25 PM EDT Narrative [facility] - 01/01/2025 6:12 PM EDT Therapeutic decision making should be based on absolute values, rather than percentages. us Jyaesh Fitzgerald MD LAB BLOOD ORDERABLES Final Result [facility] [address] [place] [address] * Thyroid Stimulating Hormone, Plasma (01/01/2025 1:25 PM EDT) Thyroid Stimulating Hormone, Plasma 2.03 0.40 - 4.20 uIU/mL 01/01/2025 6:26 PM EDT [facility] Blood Venous blood specimen / Unknown Venipuncture / Unknown 01/01/2025 1:25 PM EDT 01/01/2025 1:25 PM EDT Narrative [facility] - 01/01/2025 6:26 PM EDT Trimester Specific Ranges TSH ( IU/mL) 1st Trimester 0.1 - 3.0 2nd Trimester 0.19 - 4.06 3rd Trimester 0.3 - 3.7 us Jayesh Fitzgerald MD LAB BLOOD ORDERABLES Final Result Performing Organization Address [facility] Co de Phone Number [facility] [address] [place] [address] * Hemoglobin A1c (01/01/2025 1:25 PM EDT) Hemoglobin A1c 5.4 <5.7 % 01/01/2025 6:49 PM EDT [facility] Blood Venous blood specimen / Unknown Venipuncture / Unknown 01/01/2025 1:25 PM EDT 01/01/2025 1:25 PM EDT Narrative [facility] - 01/01/2025 6:49 PM EDT HA1C Interpretive Data: Diagnosis of Diabetes: Diabetic > or = 6.5% Pre-diabetic 5.7 to 6.4% Non-diabetic < or = 5.6% Glycemic Targets for Type I and Type II Diabetics: Non- Adults <7.0% Adults <6.0% Children and Adolescents <7.5% Source: [place] [employer]. Standards of medical care in diabetes,2017. Diabetes Care.2017:40 (suppl 1):S1-S135. us Jayesh Fitzgerald MD LAB BLOOD ORDERABLES Final Result Performing Organization Address [facility] [place] [address] * (ABNORMAL) Lipid Profile, Plasma (01/01/2025 1:25 PM EDT) Cholesterol, Plasma 178 <200 mg/dL 01/01/2025 6:26 PM EDT [facility] Comment: Cholesterol Reference Range (age >17 years): Desirable <200 mg/dL Borderline 200 to 239 mg/dL Undesirable >239 mg/dL HDL 40(L) >=50 mg/dL 01/01/2025 6:26 PM EDT [facility] Comment: HDL Cholesterol Reference Ranges (age >17 years): Female, acceptable > or = 50 mg/dL Male, acceptable > or = 40 mg/dL Triglycerides, Plasma 160(H) <150 mg/dL 01/01/2025 6:26 PM EDT [facility] Comment: Triglyceride Reference Range (age >17 years): Desirable: <150 mg/dL Borderline high: 150 to 199 mg/dL High: 200 to 499 mg/dL Very high: >499 mg/dL Increased risk of pancreatitis: >1000 mg/dL Cholesterol/HDL Ratio 4 01/01/2025 6:26 PM EDT [facility] LDL, Calculated 110(H) <100 mg/dL 6:26 PM EDT [facility] Comment: LDL Cholesterol Reference Range [...] 12 hours? No 01/01/2025 6:26 PM EDT [facility] Blood Venous blood specimen / Unknown Venipuncture / Unknown 01/01/2025 1:25 PM EDT 01/01/2025 1:25 PM EDT us Jayesh Fitzgerald MD LAB BLOOD ORDERABLES Final Result [facility] [address] [place] [address] * (ABNORMAL) Comprehensive Metabolic Panel, Plasma (01/01/2025 1:25 PM EDT) Pathologist [facility] Glucose, Plasma 82 74 - 99 mg/dL 01/01/2025 6:26 PM EDT [facility] BUN, Plasma 12 7 - 21 mg/dL 01/01/2025 6:26 PM EDT [facility] Creatinine, Plasma 0.60 0.60 - 1.10 mg/dL 01/01/2025 6:26 PM EDT [facility] BUN/Creatinine Ratio 20 01/01/2025 6:26 PM EDT [facility] Sodium, Plasma 141 136 - 145 mmol/L 01/01/2025 6:26 PM EDT [facility] Potassium, Plasma 3.7 3.6 - 4.9 mmol/L 01/01/2025 6:26 PM EDT [facility] Chloride, Plasma 103 97 - 107 mmol/L 01/01/2025 6:26 PM EDT [facility] CO2, Plasma 26 22 - 29 mmol/L 01/01/2025 6:26 PM EDT [facility] Anion Gap 12 6 - 16 mmol/L 01/01/2025 6:26 PM EDT [facility] Total Calcium, Plasma 10.4(H) 8.9 - 10.2 mg/dL 01/01/2025 6:26 PM EDT [facility] Total Protein 7.1 6.3 - 7.9 g/dL 01/01/2025 6:26 PM EDT [facility] Albumin, Plasma 4.3 3.5 - 5.2 g/dL 01/01/2025 6:26 PM EDT [facility] AST, Plasma 28 10 - 35 U/L 01/01/2025 6:26 PM EDT [facility] Comment:Hemolyzed, result ma y be falsely increased. ALT, Plasma 39(H) 10 - 35 U/L 01/01/2025 6:26 PM EDT [facility] Alkaline Phosphatase, Plasma 104 35 - 104 U/L 01/01/2025 6:26 PM EDT [facility] Total Bilirubin, Plasma 0.3 0.2 - 1.1 mg/dL 01/01/2025 6:26 PM EDT [facility] eGFRcr 107.5 mL/min/1.7 3m*2 01/01/2025 6:26 PM EDT [facility] Comment:Reported eGFRcr in m L/min/1.73m2 is based the CKD-EPI 2020 equation that does not use a race coefficient. Blood Venous blood specimen / Unknown Venipuncture / Unknown 01/01/2025 1:25 PM EDT 01/01/2025 1:25 PM EDT us Jayesh Fitzgerald MD LAB BLOOD ORDERABLES Final Result [facility] [address] [place] [address] * VAS US Venous Duplex Lower Extremity Unilateral Right (11/20/2024 7:15 PM EDT) Anatomical Region Laterality Modality Lower Extremities Ultrasound Impressions 11/20/2024 10:20 PM EDT No right lower extremity DVT. CRITICAL RESULT: No. COMMUNICATION: Per this written report. Drafted by Bianka Jones MD on 11/20/2024 10:20 PM Final report signed by Bianka Jones MD on 11/20/2024 10:20 PM Narrative 11/20/2024 10:20 PM EDT CLINICAL INDICATION: Acute Limb Swelling TECHNIQUE: Multiplanar grace scale and Doppler vascular sonographic imaging of the deep veins of the right lower extremity(s), from groin to calf, without and with compression. Doppler imaging and spectral analysis was used to evaluate blood flow in vascular structures. COMPARISON: None. FINDINGS: The visualized deep veins demonstrate flow and are compressible. No evidence of deep venous thrombosis. Procedure Note Bianka Jones MD - 11/20/2024 CLINICAL INDICATION: Acute Limb Swelling TECHNIQUE: Multiplanar grace scale and Doppler vascular sonographic imaging of thedeep veins of the right lower extremity(s), from groin to calf, withoutand with compression. Doppler imaging and spectral analysis was used toevaluate blood flow in vascular structures. COMPARISON: None. FINDINGS: The visualized deep veins demonstrate flow and are compressible. Noevidence of deep venous thrombosis. IMPRESSION: No right lower extremity DVT. CRITICAL RESULT: No. COMMUNICATION: Per this written report. Drafted by Bianka Jones MD on 11/20/2024 10:20 PM Final report signed by Bianka Jones MD on 11/20/2024 10:20 PM us George Alcantara MD CV VASCULAR PROCEDURES F inal Result * MR Lumbar Spine wo IV Contrast (11/16/2024 8:14 AM EDT) Anatomical Region Laterality Modality L-spine Magnetic Resonan ce 11/16/2024 8:14 AM EDT Narrative 11/16/2024 2:32 [place] [address] Name: AUBRIE RODRIGUEZ Exam Date: 11/16/2024 : 1970 Age 54 years Gender: F Physician: JAYESH FITZGERALD Facility: [facility] Facility HSV: Outpatient Exam: MRI LUMBAR SPINE W/O MRI lumbar spine without contrast. HISTORY: Lumbar radiculopathy. FINDINGS: Axial and sagittal images were generated. The conus terminates at the level L1-2 disc space. Conus normal in signal and caliber. Vertebral bodies normal in height and signal. No spinal or neural foraminal stenosis. No significant disc protrusion or disc herniation. Bulging annuli L3-4 and L5-S1 levels. IMPRESSION: MRI lumbar spine within normal limits. Electronically signed by: Abdon Andino MD 11/16/2024 02:29 PM EDT Dictated By: Abdon Andino Transcribed By: Transcribed On: 11/16/2024 11:11 AM Electronically signed by: Abdon Andino 11/16/2024 Thank you for referring AUBRIE RODRIGUEZ to [facility]. Legally authenticated by LUCIE SOLIZ 2024-11-16 11:11:00 Procedure Note Provider, [facility] - 11/16/2024 [place] [id number] Name: AUBRIE RODRIGUEZ Exam Date: 11/16/2024 : 1970 Age 54 years Gender: F Physician: JAYESH FITZGERALD Facility: [facility]ATRIC Facility HSV: Outpatient Exam: MRI LUMBAR SPINE W/O MRI lumbar spine without contrast. HISTORY: Lumbar radiculopathy. FINDINGS: Axial and sagittal images were generated. The conus terminates at the level L1-2 disc space. Conus normal in signal and caliber. Vertebral bodies normal in height and signal. No spinal or neural foraminal stenosis. No significant disc protrusion or disc herniation. Bulging annuli L3-4and L5-S1 levels. IMPRESSION: MRI lumbar spine within normal limits. Electronically signed by: Abdon Andino MD 11/16/2024 02:29 PM EDTRP Dictated By: Abdon Andino Transcribed By: Transcribed On: 11/16/2024 11:11 AM Electronically signed by: Abdon Andino 11/16/2024 Thank you for referring AUBRIE RODRIGUEZ to [facility]. Legally authenticated by LUCIE SOLIZ 2024-11-16 11:11:00 Jayesh Fitzgerald MD IMG MRI PROCEDURES Final R esult * Mammography Breast Screening Tomosynthesis Bilateral (07/12/2024 9:09 AM EST) Anatomical Region Laterality Modality Breast Bilateral Mammography 07/12/2024 9:09 AM EST Narrative 07/26/2024 5:05 [place] [address] Name: AUBRIE RODRIGUEZ Exam Date: 07/12/2024 : 1970 Age 53 years Gender: F Physician: JAYESH FITZGERALD Facility: [facility]CHIATRIC Facility HSV: Outpatient Exam: NANCY SCRN MAMMO W/CAD BILAT Exam: 3-D screening mammography including tomosynthesis and CAD (Computer Assisted Detection). Clinical indication: Asymptomatic screening exam Comparison: Exams to 2022 TECHNIQUE: Routine bilateral 2D screening mammogram with CC and MLO views obtained. 3-D tomosynthesis and Computer assisted detection were utilized for this exam. BREAST DENSITY: There are scattered fibroglandular densities FINDINGS: No suspicious mass, architectural distortion, or suspicious calcifications are present. IMPRESSION: No evidence of malignancy in either breast Recommendation: Annual screening mammography recommended in one year The results of this report will be communicated to the patient by letter in layman's terms. ACR BI-RADS: BI-RADS assessment category 1: Negative mammogram Mammography does not detect approximately 10-15% of breast cancers. A normal mammogram does not exclude breast cancer in a patient with palpable mass or abnormal findings on physical examination. These patients may need biopsies and when clinically indicated a biopsy should not be postponed because of a normal mammogram. If the patient has breast surgery or biopsy, FDA/SA Regulatory Guidelines mandate that this facility receive pathologic results for follow-up correlation. Electronically signed by:Ivan Otero MD07/26/2024 05:01 PM [facility] [place]ictated By: Ivan Otero Transcribed By: Transcribed On: 07/12/2024 10:02 AM Electronically signed by: Ivan Otero 07/12/2024 Thank you for referring AUBRIE RODRIGUEZ to [facility]. Legally authenticated by MOHSEN JIMENEZ 2024-07-12 10:02:28 Procedure Note Provider, [facility] - 07/26/2024 [place] [address] Name: AUBRIE RODRIGUEZ Exam Date: 07/12/2024 : 1970 Age 53 years Gender: F Physician: JAYESH FITZGERALD Facility: PSYCHIATRIC Facility HSV: Outpatient Exam: NANCY SCRN MAMMO W/CAD BILAT Exam: 3-D screening mammography including tomosynthesis and CAD(Computer Assisted Detection). Clinical indication: Asymptomatic screening exam Comparison: Exams to 2022 TECHNIQUE: Routine bilateral 2D screening mammogram with CC and MLOviews obtained. 3-D tomosynthesis and Computer assisted detection were utilizedfor this exam. BREAST DENSITY: There are scattered fibroglandular densities FINDINGS: No suspicious mass, architectural distortion, or suspicious calcifications are present. IMPRESSION: No evidence of malignancy in either breast Recommendation: Annual screening mammography recommended in one year The results of this report will be communicated to the patient by letterin layman's terms. ACR BI-RADS: BI-RADS assessment category 1: Negative mammogram Mammography does not detect approximately 10-15% of breast cancers. Anormal mammogram does not exclude breast cancer in a patient with palpable massor abnormal findings on physical examination. These patients may needbiopsies and when clinically indicated a biopsy should not be postponed because ofa normal mammogram. If the patient has breast surgery or biopsy, FDA/SA Regulatory Guidelines mandate that this facility receive pathologicresults for follow-up correlation. Electronically signed by:Ivan Otero MD07/26/2024 05:01 PM [facility] [place]ict[place] By: Ivan Otero Transcribed By: Transcribed On: 07/12/2024 10:02 AM Electronically signed by: Ivan Otero 07/12/2024 Thank you for referring AUBRIE RODRIGUEZ to [facility]. Legally authenticated by MOHSEN JIMENEZ 2024-07-12 10:02:28 Jayesh Fitzgerald MD IMG BI PROCEDURES Final Re sult from Last 3 Months or Most Recently Relevant to Health Maintenance [facility] [id number] JORJE Care Teams Museum Docent Relationship Specialty Start Date End Date Jayesh Fitzgerald MD [address] [place] [id number] PCP - General 06/28/24
--- OUTSIDE RECORDS SUMMARY | 2025-02-07 10:50 | XMS_ITS | Encounter Summary ---
Author Organization [facility] Address [address] [place] [address] Care Team Providers Care Fare Register Repairer Name Role Phone Megan Fitzgerald MD Primary Care Provider [phone]- [phone] Encounter Details Date Type Department Care Team (Latest Contact Info) Description 12/25/2024 Travel Social History Tobacco Use Types Packs/Day Years [...] Date Recorded Patient Health Questionnaire-2 Score 0 10/31/2024 Hunger Vital Sign Answer Date Recorded Within [...] place to sleep or slept in a senior care (including now)? No 06/21/2024 PHQ-9 Answer Date Recorded Patient Health Questionnaire-9 Score 0 10/31/2024 Housing Stability Vital Sign Answer Padilla e Recorded In the last 12 months, was t here a time when you were not able to pay the mortgage or rent on time? No 10/24/2024 In the past 12 months, how m any times have you moved where you were living? 0 10/24/2024 At any time in the past 12 m [facility], were you homeless or living in a senior care (including now)? No 10/24/2024 Utilities Answer Date [...] on file documented as of this encounter Plan of Treatment Upcoming Encounters Date Type Department Care Team (Late st Contact Info) Description 04/03/2025 11:20 AM EDT Office Visit [facility] [place] [address] [address] [address] [place] [address] documented as of this encounter Visit Diagnoses Not on filedocumented in this encounter Additional Health Concerns Assessment Noted Time PHQ-9 Depression Total Score: 0 11/01/19 25 10:58 AM EDT A Body Mass Index follow-up plan has been documented for the patient 11/21/2024 7:44 AM EDT documented as of this encounter Care Teams Fare Register Repairer Relationship Specialty Start Date End Date Megan Fitzgerald MD [address] [place] [address] PCP - General 06/28/24 documented as of this encounter
--- OUTSIDE RECORDS SUMMARY | 2025-02-07 10:50 | XMS_ITS | Continuity of Care Document ---
Author Organization [facility] Obi brannon, NEUROLOGY [address] [place] [address] Care Team Providers Care Drafter Mechanical Name Role Phone JAYESH FITZGERALD Referring Provider Assessment Encounter Date Assessment Date Assessment LastModified by Organization Details LastModified Time 02/06/2025 02/06/2025 She has persistent pain primarily involving the plantar aspect of the right foot. She is very tender to palpation of the arch and lateral forefoot. I think this is primarily a foot problem - perhaps refractory plantar fasciitis (though heel not much affected) or maybe something like a stress fracture. I do not think this is a neurological problem. I think she needs re-evaluation by a foot/ankle specialist, and I will try to arrange for that. She may need MRI of the foot. [email or web address] Not available 02/06/2025 10:07:20 Plan of Treatment Reminders Order Date Submit Date Provider Last Modified By Organization Details Last Modified Time Details Appointments NEW PATIENT 2024 02:40P M SE SMILEY DPShweta Not available Not available Not available Lab None recorded . Referral orthoped ic foot/ank le surgeon referral 2024 025 [email or web address] [address] Smiley DPM, [address] [place], [address], 02/06/2025 10:25:34 Procedures None recorded . Surgeries None recorded . Imaging None recorded . Medication Orders None recorded . Patient TargetsNo targets recorded. Patient InstructionsNo instructions recorded. Reason for Referral Orthopedic Foot/ankle Surgeo n Referral for Pain in right foot Referring Physician: Elyse Smiley, Neurology, Encounter Date: 02/06/2025 Procedures Surgical History Date Name Laterality Status Provider Name and Address Organization Details Recorded Time section completed [facility] Yaneth FELIZ [facility] 02/06/2025 09:18:41 procedure on eye completed [facility] 02/06/2025 09:20:16 Tubal Ligation completed [facility] 02/06/2025 09:20:30 anal fistula operation completed [facility] 02/06/2025 09:21:09 Carpal Tunnel Surgery completed [facility] TRAY [facility] 02/06/2025 09:22:04 partial hysterectomy completed [facility] 02/06/2025 09:22:58 Imaging Results None recorded. Procedure Notes None recorded. Medical Equipment None Reported. Allergies No known drug allergies Medications Name Sig Start Date Stop Date Status Note LastModified by Organization Details LastModified Time atorvastatin 10 mg tablet Take 1 tablet every day by oral route. active Not Available Not Available No t Available irbesartan 300 mg-hydrochloro thiazide 12.5 mg tablet Take 1 tablet every day by oral route. active Not Available Not Available No t Available gabapentin 300 mg capsule Take 1 capsule 3 times a day by oral route. active Not Available Not Available No t Available Vitals Date Recorded Body height Body mass index (BMI) Body weight Heart rate Oxygen saturation Oxygen saturation in Arterial blood by Pulse oximetry Systolic blood pressure Diastolic blood pressure Provider Name and Address Organization Details Last Updated DateTime 157.48 cm 42.4 kg/m2 262140. 43 g 68 /min 98 % 98 % 124 mm[Hg] 79 mm[Hg] [facility] Yaneth FELIZ [facility] 09:14:43 Social History Question Answer Notes LastModified by Organizat ion Details LastModified Time Tobacco Smoking Status Never Smoker [facility] Yaneth [facility] 02/06/2025 09:18:27 What Is Your Level Of Caffeine Consumption? Heavy [email or web address] Information not available 02/06/2025 Sex: Female Functional Status Question Answer Note LastModified by Organizat ion Details LastModified Time What is your level of alcohol consumption? Occasional Information not available 02/06/2025 Mental Status None recorded. Family History Relationship Description Onset Age of this Age Resolved Age Notes LastModified by Organization Details LastModified Time Father Family history of malignant neoplasm Not available 2024 09:16:34 Father Hypertensive disorder [email or web address] Not available 2024 09:17:05 Father Mental health problem Not available 2024 09:17:28 Father Cerebrovascu lar accident Heat Stroke , took his eyesig ht [email or web address] Not available 02/06/2025 09:18:02 Brother Family history of malignant neoplasm [email or web address] Not available 2024 09:16:34 Sister Family history of malignant neoplasm [email or web address] Not available 2024 09:16:34 Sister Diabetes mellitus [email or web address] Not available 2024 09:16:46 Sister Hypertensive disorder [email or web address] Not available 2024 09:17:05 Sister Mental health problem [email or web address] Not available 2024 09:17:28 Mother Family history of malignant neoplasm [email or web address] Not available 2024 09:16:34 Mother Mental health problem Not available 2024 09:17:28 Medical History Condition Response Glaucoma N Depression Y Anxiety Disorder N Arthritis N Cancer N Stroke N High Cholesterol Y Parkinson's Disease N Alzheimer's N Migraines Y Neurological Problems N Diabetes N Tuberculosis N Heart Disease N Hypertension Y Gynecological HistoryNo gynecological history recorded. Obstetrics History GPAL:G 0 P 0 0 0 0 Past Encounters Encounter ID Performer Location Encounter Start Date Encounter Closed Date Diagnosis/Indication Diagnosis SNOMED-CT Code Diagnosis ICD10 Code Diagnosis Note [id number] ELYSE SMILEY MD NEUROLOGY [address] [place] [address] 02/06/2025 09:04:02 02/06/2025 10:25:33 Pain in right foot [id number] 71787 M79.671 Health Concerns Section Related Observation LastModified by Organization Detai ls LastModified Time None Recorded Concern Status LastModified by Organization Details LastModified Time None Recorded Payers Encounter Date Sequence Insurance Name Policy Number Policy Silva Covered Member ID Silva Member ID Guarantor Name 02/06/2025 1 [place] [id number] Ermias Cervantes [id number] Noemi Cervantes Notes Date Note Type Note Provider Name and Address Organization Details Recorded Time 02/06/2025 text/html This is a 54 year-old female seen at the request of Dr. Fitzgerald for evaluation of leg pain. She complains of pain in the right foot and leg. This problem started 2+ years ago, when living in [place]. When this started, she had pain in the arch of the foot when standing. She was diagnosed with plantar fasciitis and had a shot in the foot which helped for maybe a year. Moved to [place] last year and symptoms recurred and have persisted and worsened. Now, the whole bottom of the foot hurts. Some pain into Achilles/posterior calf, even proximally up to the knee or so. Pain is worse with weight-bearing and walking, landy in the morning, but to some extent is present when resting. Has tried meloxicam - helped initially but this did not last.Taking gabapentin now 900 mg/day - not much help.She was seen by a rfid developer here, once, and had a shot but this did not help.Inserts which cost $2100 did not help.She has not worn a boot, etc. Has had swelling and redness of both legs, at times. no numnbess, tingling. Quit working as [employer] a few mos ago because prolonged standing made the pain and swelling worse. Left leg does not hurt much. Lumbar MRI was done earlier this year - normal by report.She reports circulation test was normal (venous ultrasound, I think). ELYSE SMILEY MD [facility] [place], [address], [facility] 02/06/2025 10:07:35 OBGyn Episode No OBEpisode recorded.
--- OUTSIDE RECORDS SUMMARY | 2025-02-07 10:50 | XMS_ITS | Encounter Summary ---
Author Organization [facility] Address [address] [place] [address] Care Team Providers Care Entry Level Software Developer Name Role Phone Megan Fitzgerald MD Primary Care Provider [phone]- [phone] Encounter Details Date Type Department Care Team (Late st Contact Info) Description 12/28/2024 Telephone [facility] [address] [place] [address] Ghazal Pinon RN Social History Tobacco Use Types Packs/Day Years [...] place to sleep or slept in a custodial (including now)? No 06/21/2024 PHQ-9 Answer Date [...] any time in the past 12 m [facility], were you homeless or living in a custodial (including now)? No 10/24/2024 Utilities Answer Date [...] on file documented as of this encounter Functional Status * Over the [...] Questionnaire -9 Score 0 01/01/2025 12:40 PM LINAT Yesenia Olsen * Calculated C-SSRS Risk Score [...] Olsen P 6. Suicidal Behavior (Lifetime) No 5 12:41 PM EDT Yesenia Olsen documented as of this encounter Miscellaneous Notes * Telephone Encounter - Calvin Jain, PharmD - 01/03/2025 1:10 PM EDT Unable to complete request due to: patient declined. Called back and said not interested at this time. Briefly went over services and welcomed her to call back in future, if desired. * Telephone Encounter - Keysha Villa PharmD - 01/03/2025 10:43 AM EDT LVM #1 on 12/29, LVM #2 on 01/03. documented in this encounter Plan of Treatment Upcoming Encounters Date Type Department Care Team (Late st Contact Info) Description 04/03/2025 11:20 AM EDT Office Visit [facility] [address] [place] [address] Megan Fitzgerald MD [address] [place] [address] documented as of this encounter Visit Diagnoses Not on filedocumented in this encounter Additional Health Concerns Assessment Noted Time PHQ-9 Depression Total Score: 0 11/01/19 25 10:58 AM EDT A Body Mass Index follow-up plan has been documented for the patient 11/21/2024 7:44 AM EDT documented as of this encounter Care Teams Entry Level Software Developer Relationship Specialty Start Date End Date Megan Fitzgerald MD [address] [place] [address] PCP - General 06/28/24 documented as of this encounter
--- OUTSIDE RECORDS SUMMARY | 2025-02-07 10:50 | XMS_ITS | Data Portability ---
Author Organization [facility] COURTNEY [facility]enS [place] [facility] Address [address] [place] [address] Care Team Providers Care Bobbin Collector Name Role Phone JAYESH FITZGERALD Referring Provider [...] She may need MRI of the foot. [email or web address] Not available 02/06/2025 10:07:20 Plan of Treatment Reminders Order Date Submit Date Provider Last Modified By Organization Details Last Modified Time Details Appointments NEW PATIENT 2024 02:40P M SE SMILEY DPShweta Not available Not available Not available Lab None recorded . Referral orthoped ic foot/ank le surgeon referral 2024 025 [email or web address] [address] Smiley DPM, [address] [place], [address], 02/06/2025 10:25:34 Procedures None recorded . Surgeries [...] Address Organization Details Recorded Time section completed [facility] 02/06/2025 09:18:41 procedure on eye completed [facility] 02/06/2025 09:20:16 Tubal Ligation completed [facility] 02/06/2025 09:20:30 anal fistula operation completed [facility] 02/06/2025 09:21:09 Carpal Tunnel Surgery completed [facility] 02/06/2025 09:22:04 partial hysterectomy completed [facility] 02/06/2025 09:22:58 Imaging Results None recorded. Procedure [...] Last Updated DateTime 157.48 cm 42.4 kg/m2 866350. 43 g 68 /min 98 % 98 % 124 mm[Hg] 79 mm[Hg] [facility] 09:14:43 Social History Question Answer Notes LastModified by [employer] ion Details LastModified Time Tobacco Smoking Status Never Smoker [facility]/06/[facility]25 09:18:27 What Is Your Level Of Caffeine Consumption? Heavy [email or web address] Information not available 02/06/2025 Sex: Female Functional Status Question Answer Note LastModified by [employer] Details LastModified Time What is your level of alcohol consumption? Occasional [email or web address] Information not available 02/06/2025 Mental Status None recorded. Family History Relationship Description Onset Age of this Age Resolved Age Notes LastModified by Organization Details LastModified Time Father Family history of malignant neoplasm [email or web address] Not available 2024 09:16:34 Father Hypertensive disorder [email or web address] Not available 2024 09:17:05 Father Mental health problem [email or web address] Not available 2024 09:17:28 Father Cerebrovascu lar accident Heat Stroke , took his eyesig ht [email or web address] Not available 02/06/2025 09:18:02 Brother Family history of malignant neoplasm [email or web address] Not available 2024 09:16:34 Sister Family history of malignant neoplasm [email or web address] Not available 2024 09:16:34 Sister Diabetes mellitus [email or web address] Not available 2024 09:16:46 Sister Hypertensive disorder [email or web address] Not available 2024 09:17:05 Sister Mental health problem [email or web address] Not available 2024 09:17:28 Mother Family history of malignant neoplasm [email or web address] Not available 2024 09:16:34 Mother Mental health problem [email or web address] Not available 2024 09:17:28 Medical History Condition [...] SNOMED-CT Code Diagnosis ICD10 Code Diagnosis Note [id number] ELYSE SMILEY MD NEUROLOGY [address] [place] [address] 02/06/2025 09:04:02 02/06/2025 10:25:33 Pain in right foot [id number] M79.671 Health Concerns Section Related Observation LastModified by Organization Detai ls LastModified Time None Recorded Concern Status LastModified by Organization Details LastModified Time None Recorded Advance Directives Directive None Recorded Payers Insurance Date Sequence Insurance Name Policy Number Policy Silva Covered Member ID Silva Member ID Guarantor Name 02/03/2025 1 [employer] [id number] Ermias Cervantes [id number] Noemi Cervantes Notes Date Note Type Note Provider Name and Address Organization Details Recorded Time 02/06/2025 text/html This is a 54 year-old RH female seen at the request of Dr. Fitzgerald for evaluation of leg pain. She complains of pain in the right foot and leg. This problem started 2+ years ago, when living in [place]. When this started, she had pain in the arch of the foot when standing. She was diagnosed with plantar fasciitis and had a shot in the foot which helped for maybe a year. Moved to [place] last year and symptoms recurred and have [...] not much help.She was seen by a hub lead here, once, and had a shot but this did not help.Inserts which cost $2100 did not help.She has not worn a boot, etc. Has had swelling and redness of both legs, at times. no numnbess, tingling. 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 Left leg does not hurt much. Lumbar MRI was done earlier this year - normal by report.She reports circulation test was normal (venous ultrasound, I think). ELYSE SMILEY MD [facility] [place], [address], [place] [facility] 02/06/2025 10:07:35 OBGyn Episode No OBEpisode recorded.
--- OUTSIDE RECORDS SUMMARY | 2025-02-07 10:50 | XMS_ITS | Data Portability ---
Author Organization [place] - [facility], autoContract - [facility] [place] Address [address], [address] [place] [address] Care Team Providers Care Vocational Education Teacher Name Role Phone CAMDEN STEWART Referring Provider CAMDEN STEWART Primary Care Provider [phone] EVETTE CHAVIS Healthcare Associate Assessment No assessment recorded. Plan of Treatment Reminders Order Date Submit Date Provider Last Modified By Organization Details Last Modified Time Details Appointments None recorded. Lab test, urine - PER PATIENT- She had a hysterecto my 2016 017 [email or web address] [facility] (Lab), [address] [place], [address], 8 15:18:00 Referral None recorded. Procedures colonoscop y procedure (PROC) 2016 017 [email or web address] Not available 7 15:56:36 Surgeries surgical treatment of anal fistula (SURG) 2017 018 [email or web address] Not available 8 10:17:38 surgical treatment of anal fistula (SURG) 2016 017 [email or web address] Not available 7 13:04:40 Imaging None recorded. Medication Orders Fleet Enema 19 gram-7 gram/118 mL 2017 018 INTERFACE [id number], [address], [place], [place], [id number], 8 14:46:18 Suprep Bowel Prep Kit 17.5 gram-3.13 gram-1.6 gram oral solution 2016 017 [facility] [address], [address] [place], [address], 7 10:40:13 Patient TargetsNo targets recorded. Patient Instructions Encounter Date Encounter Id Patient Instructions Last Modified By Organization Details Last Modified Time 05/31/2017 [id number] The risks, benefits and alternatives to EUA, incision and drainage of perirectal abscess and possible fistulotomy, possible seton placement were described in detail to the patient . Risks of anesthesia were discussed. Risks of procedure including infection, bleeding, anal stricture, sphincter dysfunction, poor cosmetic result and need for further treatment including surgical procedures were described. The possibility of recurrence or persistence was discussed. The patient demonstrated understanding of considerations, and elected to proceed. All questions were answered fully. [email or web address] Not available 05/31/2017 16:26:53 09/06/2017 [id number] The risks, benefits and alternatives to EUA, incision and drainage of perirectal abscess and possible fistulotomy, possible seton placement were described in detail to the patient . Risks of anesthesia were discussed. Risks of procedure including infection, bleeding, anal stricture, sphincter dysfunction, poor cosmetic result and need for further treatment including surgical procedures were described. The possibility of recurrence or persistence was discussed. The patient demonstrated understanding of considerations, and elected to proceed. All questions were answered fully. [email or web address] Not available 09/06/2017 14:44:59 Reason for Referral None Reported. Results Created Date Observation Date Name Description Value Unit Range Abnormal Flag Note LastModifiedBy Organization Detail LastModifiedTime 06/17/20 17 06/17/2017 CHEM8 + iStat sodium, bld 143 mEq/L 136-14 5 normal Not Available [facility] (Lab) [address], [place], [address], 06/17/2017 09:16:55 06/17/20 17 06/17/2017 CHEM8 + iStat potassium, blood 3.7 mEq/L 3.5-4. 9 normal Not Available [facility] (Lab) [address] [place], [address], 06/17/2017 09:16:55 06/17/20 17 06/17/2017 CHEM8 + iStat chloride 104 mEq/L 98-107 normal Not Available [facility] (Lab) [address] [place], [address], 06/17/2017 09:16:55 06/17/20 17 06/17/2017 CHEM8 + iStat CO2 total 25 mmol/ L 21-32 normal Not Available [facility] (Lab) [address] [place], [address], 06/17/2017 09:16:55 06/17/20 17 06/17/2017 CHEM8 + iStat glucose, blood 77 mg/dL 74-106 normal Not Available [facility] (Lab) [address] [place], [address], 06/17/2017 09:16:55 06/17/20 17 06/17/2017 CHEM8 + iStat blood urea nitrogen 6 mg/dL 7-25 low Not Available [facility] (Lab) [address] [place], [address], 06/17/2017 09:16:55 06/17/20 17 06/17/2017 CHEM8 + iStat creatinine, blood 0.7 mg/dL 0.6-1. 3 normal Not Available [facility] (Lab) [address] [place], [address], 06/17/2017 09:16:55 06/17/20 17 06/17/2017 CHEM8 + iStat hematocrit 45 % 38-45 normal Not Available [facility] (Lab) [address] [place], [address], 06/17/2017 09:16:55 06/17/20 17 06/17/2017 CHEM8 + iStat hemoglobin 15.3 gm/dL 13.0-1 7.2 normal Not Available [facility] (Lab) [address] [place], [address], 06/17/2017 09:16:55 06/17/20 17 06/17/2017 CHEM8 + iStat ionized calcium 5.30 mg/dL 4.40-5 .40 normal Not Available [facility] (Lab) [address] [place], [address], 06/17/2017 09:16:55 06/17/20 17 06/17/2017 surgi nam patho logy study AP_report Note SURGI NAM PATHO LOGY REPOR T IRON NT: AUBRIE CERVANTES CASE SHERRY R: [id number] D.O.B : [birth year] AGE: 46 yrs. SEX: F DATE COLLE CTED: 06/17 11:36 MEDIC AL RECOR D SHERRY R: [id number] DATE RECEI SOHEILA: 06/17 11:36 PATIE NT ENCOU NTER: [id number] PATIE NT LOCAT ION: [facility] ATTEN DING PHYSI ISAAK: BUCHB ERG, [place] S. CLINI NAM HISTO RY: Anore ctal fistu la FINAL DIAGN OSIS: BIOPS Y, MID RECTA L POLYP : - BENIG N POLYP OID COLON IC MUCOS A WITH HYPER PLAST IC FEATU RES, EDEMA AND FOCAL GRANU LATIO N TISSU E OF THE AG A PROPR IA; NEGAT DANAE FOR DYSPL LAWRENCE OR INVAS DANAE TUMOR . COMME NTS: Featu res of mucos al prola pse are consi dered histo logic ally. Pleas e corre late clini sheldon . MICRO SCOPI C DESCR IPTIO N: A micro scopi c exami natio n was perfo rmed. GROSS DESCR IPTIO N: Recei soheila in forma salo label ed with the iron nt's name, Aubrie Cervantes , mid-r ectal polyp is a singl e 0.3 cm in great est dimen grupo irreg ular to polyp oid chow porti on of soft tissu e. Total ly submi tted in A1. CPT CODES : 32763 Wojciech Lai d: Ender Atkins cht, D.O. 06/18 09:17 End of Repor t Not Available [facility] (Lab) [address] [place], [address], 06/18/2017 10:02:41 Result Notes None recorded. Problems Name Problem SNOMED Code Status Onset Date Resolution Date Notes Provider Name and Address Organization Details Recorded Time Formerly [facility] [id number] Active 017 Kathrine Mccullough [facility] 06/28/2017 13:53:26 Problem Notes None recorded. Procedures Surgical History Date Name Laterality Status Provider Name and Address Organization Details Recorded Time 06/17/20 17 Colonoscopy completed [facility] 07/23/2017 15:23:48 completed [facility] 03/22/2017 09:20:21 completed [facility] 03/22/2017 09:20:28 Tubal Ligation completed [facility] 03/22/2017 09:20:37 Anal/Rectal Surgery completed [facility] 03/22/2017 09:21:03 Imaging Results None recorded. Procedure Notes None recorded. Medical Equipment None Reported. Allergies No known drug allergies Medications Name Sig Start Date Stop Date Status Note LastModified by Organization Details LastModified Time Augmentin 875 mg-125 mg tablet Take 1 tablet every 12 hours by oral route for 10 days. 05/31 completed Not Available Not Available Not Available oxycodone-a cetaminophe n 5 mg-325 mg tablet TAKE 1 TO 2 TABLETS BY MOUTH EVERY 6 HOURS NEEDED 09/06 completed Not Available Not Available Not Available Fleet Enema 19 gram-7 gram/118 mL Insert by rectal route on morning of surgery. Hold for 15 minutes then repeat with another enema 1 hour later. 2017 active Not Available Not Available Not Avai lable naproxen sodium 550 mg tablet TAKE 1 TABLET BY MOUTH TWO TIMES A DAY NEEDED FOR MILD PAIN 09/06 completed Not Available Not Available Not Available gabapentin 100 mg capsule Take 2 capsules every day by oral route. 05/31 completed Not Available Not Available Not Available diazepam 5 mg tablet TAKE 1/2 TABLET BY MOUTH EVERY 8 HOURS NEEDED FOR ANAL SPASM 08/02 completed Not Available Not Available Not Available Col-Rite 100 mg capsule TAKE 1 CAPSULE BY MOUTH TWO TIMES A DAY active Not Available Not Available No t Available Bactrim 800 mg 04/30 completed Not Available Not Available Not Available Slow Fe 09/06 completed Not Available Not Available Not Available tranexamic acid 650 mg tablet take 2 tablets by mouth three times a day for UP TO 5 days if needed for HEAVY BLEEDING 09/06 completed Not Available Not Available Not Available Suprep Bowel Prep Kit 17.5 gram-3.13 gram-1.6 gram oral solution Follow instructi ons for bowel prep 08/02 completed Not Available Not Available Not Available Multi Vitamin 09/06 completed Not Available Not Available Not Available Vitals Date Recorded Body height Body mass index (BMI) Body weight Heart rate Respiratory rate Body temperature Systolic blood pressure Diastolic blood pressure Provider Name and Address Organization Details Last Updated DateTime 8 160.02 cm 35.6 kg/m2 29459.0 7 g 72 /min 16 /min 98.3 [degF] 96 mm[Hg] 58 mm[Hg] [facility] 8 13:46:35 Date Recorded Body height Body mass index (BMI) Body weight Body temperature Respiratory rate Heart rate Systolic blood pressure Diastolic blood pressure Provider Name and Address Organization Details Last Updated DateTime 7 160.02 cm 34.4 kg/m2 66691.9 2 g 98.4 [degF] 16 /min 76 /min 104 mm[Hg] 64 mm[Hg] Ephraim [facility] 7 15:02:57 Date Recorded Body height Body mass index (BMI) Body weight Heart rate Respiratory rate Body temperature Systolic blood pressure Diastolic blood pressure Provider Name and Address Organization Details Last Updated DateTime 7 160.02 cm 34.4 kg/m2 04688.9 2 g 65 /min 16 /min 98.1 [degF] 117 mm[Hg] 70 mm[Hg] Zulma Gardner [facility] 7 15:44:50 Date Recorded Body height Body mass index (BMI) Body weight Heart rate Systolic blood pressure Diastolic blood pressure Provider Name and Address Organization Details Last Updated DateTime 7 160.02 cm 34.9 kg/m2 25559.7 g 92 /min 131 mm[Hg] 84 mm[Hg] Kathrine Mccullough [facility] 14:07:38 Date Recorded Body height Body mass index (BMI) Body weight Heart rate Respiratory rate Body temperature Systolic blood pressure Diastolic blood pressure Provider Name and Address Organization Details Last Updated DateTime 160.02 cm 34.9 kg/m2 12385.7 g 63 /min 16 /min 97.8 [degF] 118 mm[Hg] 60 mm[Hg] Zulma Gardner [facility] 7 10:39:06 Social History Question Answer Notes LastModified by Albireo Details LastModified Time Tobacco Smoking Status Never Smoker Zulma Gardner [facility] 03/22/2017 09:19:52 Do You Have An Advance Directive? No Information not available 04/30/2017 Do You Reside In Or Have You Traveled To An Area Where Ebola Virus Transmission Is Active? No Information not available 03/22/2017 Live Alone Or With Others? With Others Information not available 03/22/2017 Do You Have A Medical Power Of Biostatistics Manager? No [email or web address] Information not available 04/30/2017 What Was The Date Of Your Most Recent Tobacco Screening? 09/06/2017 Information not available 03/16/2019 How Much Tobacco Do You Smoke? No [email or web address] Information not available 04/30/2017 Has Tobacco Cessation Counseling Been Provided? No [email or web address] Information not available 04/30/2017 Sex: Unknown Functional Status Question Answer Note LastModified by Organizat ion Details LastModified Time What is your level of alcohol consumption? Occasional Information not available 03/22/2017 Urinary incontinence assessment performed? No [email or web address] Information not available 04/30/2017 Mental Status None recorded. Family History Relationship Description Onset Age of this Age Resolved Age Notes LastModified by Organization Details LastModified Time Mother Malignant tumor of colon Not available 2016 11:46:20 Medical History Condition Response Anemia Y Gynecological HistoryNo gynecological history recorded. Obstetrics History GPAL:G 0 P 0 0 0 0 Past Encounters Encounter ID Performer Location Encounter Start Date Encounter Closed Date Diagnosis/Indication Diagnosis SNOMED-CT Code Diagnosis ICD10 Code Diagnosis Note [id number] Balbina Queen MD [facility] [address] [place] [address] 03/22/2017 08:44:00 03/22/2017 09:59:26 Anorectal fistula 76069100 K60.5 #1. Anal fistula. #2. History of perirectal abscess status post incision and drainage. #3. History of anemia. 4. Family history of colon cancer. I recommend we proceed with anorectal exam under anesthesia and seton placement versus fistulotom y. We have discussed the procedure in detail as well as the associated risks. Patient understand s these risks and agrees to proceed. No specific workup or preoperati ve bowel prep is required. Additional ly, she will require a colonoscop y at some point this year due to her strong family history of colon cancer. [id number] Balbina Queen MD [facility]Spec_[facility] [address] [place] [address] 04/30/2017 15:11:13 04/30/2017 16:10:16 Anorectal fistula 10451206 K60.5 #1. Anal fistula status post exam under anesthesia , conversion of transsphin cteric fistula into intersphin cteric fistula and seton placement. #2. Right medial buttock ulceration . On exam today, patient has a right medial buttock ulceration that was not present at the time of surgery at the beginning of March. It is difficult to tell whether or not this Indicates known fistula. There is some surroundin g induration in the area is quite sensitive to touch. Patient is afebrile and hemodynami c stable. No immediate need for surgical interventi on. I will prescribe a 10 day course of oral Augmentin to see if this resolves her wound. She'll follow-up with me in 2 weeks. If her symptoms have not improved, we'll proceed to the operating room for exam under anesthesia . I've asked her to follow up sooner should her symptoms worsen. Additional ly, she will require a colonoscop y at some point this year due to her strong family history of colon cancer. [id number] Balbina Queen MD [facility] [facility] [address] [place] [address] 05/11/2017 14:43:04 05/11/2017 15:34:43 Anorectal fistula 04941750 K60.5 #1. Anal fistula status post exam under anesthesia , conversion of transsphin cteric fistula into intersphin cteric fistula and seton placement. #2. Right medial buttock ulceration . Doing much better today after the antibiotic s. She states she has 1 more pill left to take. On exam, the ulcerated area is nearly healed. There may be a fistula in this area but it is too soon to tell. As it is currently healing. We'll continue to monitor for now. I will have her follow up with me in 3-4 weeks for reevaluati on. At that time she is doing well, we will make plans for definitive fistula repair for her intersphin cteric fistula.I have asked her to call me prior to this if she develops worsening fevers or chills, worsening pain or swelling. If this should occur, we will proceed to the operating room for exam under anesthesia . Additional ly, she will require a colonoscop y at some point this year due to her strong family history of colon cancer. [id number] Balbina Queen MD [facility]Spec[facility] [address] [place] [address] 05/31/2017 15:39:38 06/01/2017 06:47:38 Anorectal fistula 84337267 K60.5 #1. Anal fistula status post exam under anesthesia , conversion of transsphin cteric fistula into intersphin cteric fistula and seton placement. #2. Right medial buttock opening with concern for new fistula. On exam, patient has an opening in the right medial buttock several centimeter s outside the anus that is concerning for anal fistula with some induration and scant drainage upon compressio n. The area around the seton had appears completely healed with no drainage or tenderness . Due to concerns for a new fistula and the possibilit y of inflammato ry bowel disease, I recommende d we proceed to the operating room for colonoscop y followed immediatel y by exam under anesthesia and possible fistulotom y of the intersphin cteric fistula with seton placement of the right buttock fistula if present. I've also informed the patient that if this new external opening appears to track towards the current intersphin cteric fistula, we will likely not remove the current seton until there is Appropriat e drainage and healing of this new external opening. We have discussed both colonoscop y and fistulotom y with seton placement in detail the office. Patient understand s the risks of each procedure and agrees to proceed. I will have her perform a bowel prep on the day prior and a urine test on the day of the procedure. No other preoperati vely was required. [id number] Balbina Queen MD [facility] [address] [place] [address] 06/28/2017 13:46:34 06/28/2017 14:29:01 Anorectal fistula 72637641 K60.5 #1. Right anterior transsphin cteric fistula status post seton placement. #2. Intersphin cteric fistula status post fistulotom y. 3. Rectal hyperplast ic polyps status post colonoscop y with hot snare polypectom y. No evidence of inflammato ry bowel disease. #4. History of anal fistula status post exam under anesthesia conversion of transsphin cteric fistula to intersphin cteric fistula and seton placement. Doing very well this time. On exam, draining seton is in place with no evidence of perianal sepsis. Scant serous drainage present, which is certainly expected. We will allow the fistula to mature over the next several weeks prior to definitive fistula repair. Even though the fistula along this appeared to be superficia l and hopefully, we will be able to proceed with fistulotom y for definitive fistula repair. She will follow up with in 4 weeks. 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 [id number] Balbina Queen MD [facility]_Surg _Spec_Off ice [address] [facility] [address] [place] [address] 08/02/2017 10:32:57 08/02/2017 11:46:28 Anorectal fistula 73871752 K60.5 #1. Right anterior transsphin cteric fistula status post seton placement. #2. Intersphin cteric fistula status post fistulotom y. 3. Rectal hyperplast ic polyps status post colonoscop y with hot snare polypectom y. No evidence of inflammato ry bowel disease. #4. History of anal fistula status post exam under anesthesia conversion of transsphin cteric fistula to intersphin cteric fistula and seton placement. Doing very well this time. On exam, draining seton is in place with no evidence of perianal sepsis. Scant serous drainage present, which is certainly expected. We will allow the fistula to mature over the next several weeks prior to definitive fistula repair. Even though the fistula along this appeared to be superficia l and hopefully, we will be able to proceed with fistulotom y for definitive fistula repair. She will follow up with in 4 weeks after she heals from her hysterecto my. [id number] Balbina Queen MD [facility]Spec[facility] [address] [facility] [address] [place] [address] 09/06/2017 13:39:44 09/06/2017 15:02:44 Fistula 860767834 L98.8 Anorectal fistula 663305 05 K60.5 #1. Right anterior transsphin cteric fistula status post seton placement. #2. Intersphin cteric fistula status post fistulotom y. 3. Rectal hyperplast ic polyps status post colonoscop y with hot snare polypectom y. No evidence of inflammato ry bowel disease. #4. History of anal fistula status post exam under anesthesia conversion of transsphin cteric fistula to intersphin cteric fistula and seton placement. 5. Chronic constipati on. 6. Chronic pelvic pain status post hysterecto my 08/10/2017 . Doing well from the fistula standpoint at this time. On examinatio n, seton in place in the right anterior location with scant drainage but no surroundin g induration or erythema. No other evidence of new fistulas or abscess formation/ active perineal sepsis. I believe she is ready for definitive fistula repair. We've discussed the procedures in detail to the office namely fistulotom y versus endorectal advancemen t flap versus ligation of intersphin cteric fistula tract. We discussed the pros and cons of each, namely matter of waiting success rates of each versus the risk of incontinen ce with the fistulotom y having a higher success rate but also the highest risk of incontinen ce. I performed the patient but I will not make a decision as to which procedure will be done until the fistula is fully assessed on the day of surgery in the operating room but that based on my previous evaluation , it appeared that fistulotom y would be appropriat e fistula is quite low, not appearing to involve a significan t amount of external sphincter muscle. We discussed the risk factors of these fistula surgeries as well. Patient understand s these risks and agrees to proceed. In preparatio n, I will have her perform the procedure. No other preoperati ve workup is required. Health Concerns Section Related Observation LastModified by Organization Detai ls LastModified Time None Recorded Concern Status LastModified by Organization Details LastModified Time None Recorded Advance Directives Directive N: Payers Insurance Date Sequence Insurance Name Policy Number Policy Silva Covered Member ID Silva Member ID Guarantor Name 11/05/2017 1 [employer]) [id number] Ermias Cervantes [id number] Aubrie Cervantes Notes Date Note Type Note Provider Name and Address Organization Details Recorded Time 05/11/2017 text/html Following up tod ay for anal fistula and right medial buttock ulceration. Patient was placed on a 10 day course of oral Augmentin during the last visit. Patient is significantly improved today. She states that she does still see some intermittent drainage, which is certainly expected with the anal fistula but her pain is much better. She is able to sit without difficulty. She denies any fevers or chills. She denies any difficulty with voiding. Balbina murdock, [facility] 05/11/2017 15:22:10 05/31/2017 text/html Following up for anal fistula status post seton placement. Going well overall. She has been having some perianal discomfort and a little bit of drainage from the right medial buttock. She denies any fevers or chills or difficulty with voiding. Of note, she has no family history of Crohn's disease or ulcerative colitis. Balbina murdock [facility] 05/31/2017 16:27:47 06/28/2017 text/html Following up tod ay after diagnostic colonoscopy with hot snare polypectomy 1 and anorectal exam under anesthesia, intersphincteric fistulotomy and draining seton placement performed on 06/17/2017. Pathology from the rectal polyp removal revealed benign polypoid colonic mucosa consistent with hyperplastic features. Doing very well overall. Endorses minimal drainage and some mild discomfort but no maude pain, fevers, swelling, or chills. No difficulty with urination. Balbina murdock [facility] 06/28/2017 14:33:57 08/02/2017 text/html Following a anal fistula. She is doing well. She noticed very scant drainage from the fistula tract. She is scheduled to undergo a hysterectomy on August 10. Balbina murdock [facility] 08/02/2017 10:57:01 09/06/2017 text/html Following up tod ay for an anal fistula status post seton placement. Since her last visit, she has undergone a hysterectomy on 08/10/2017 for chronic pelvic pain. According to the patient, scar tissue was found and removed. Currently, she states that her left-sided pelvic pain has returned similar to prior to surgery. Additionally, she presented to the emergency department on 2017 for rectal/vaginal pain and pressure. Workup revealed a white blood cell count 12.[address] scan of pelvis revealed a seton in place and some nondescript fluid in the pelvis, likely secondary to her recent hysterectomy but no other abscess formation. Her symptoms have resolved since that time. However, she states that she continues to have ongoing issues with constipation. This is an issue for her for several years. She did undergo a colonoscopy by myself on 06/17/2017 which revealed a benign rectal polyp only. For her constipation, she takes Colace on a daily basis and additionally adds prunelax and probiotics as needed. She presents today to discuss removal of her seton. Balbina murdock, [facility] 09/06/2017 14:46:20 OBGyn Episode No OBEpisode recorded.
--- OUTSIDE RECORDS SUMMARY | 2025-02-07 10:50 | XMS_ITS | Data Portability ---
Author Organization [place] - [facility], [facility] Address [address] [place] [address] Assessment No assessment recorded. Plan of Treatment Reminders Order Date Submit Date Provider Last Modified By Organization Details Last Modified Time Details Appointments None recorded. Lab CBC 2021 [facility] ([place]), [address] [place], [id number], 2 20:21:21 CMP, serum or plasma 2021 [facility] ([place]), [address] [place], [address], 2 19:40:24 hemoglobin A1c + average glucose, QN, blood 2021 [facility] ([place]), [address] [place], [address], 2 19:45:03 lipid panel, serum 2021 [facility] ([place]), [address] [place], [address], 2 19:40:22 TSH, serum or plasma 2021 [facility] ([place]), [address] [place], [address], 2 19:54:28 hepatitis C Ab, serum 2021 [facility] ([place]), [address] [place], [address], 19:49:04 HIV 1+2 Ab, QL, GERALD, serum or plasma or blood 2021 [facility] ([place]), [address] [place], [address], 19:55:07 Referral gastroenter ologist referral 2021 [facility], marina [email or web address] 9 [facility], [address] [place] [address] , [facility] [address], [place], [address], 09:32:29 Procedures None recorded. Surgeries None recorded. Imaging MAMMO, screening, digital, bilateral 2021 [facility], marina [email or web address] 9 [place] ([facility]), [address] [facility] , [place], [address], 09:31:16 Medication Orders hydroxyzine HCl 25 mg tablet 2021 [email or web address] [facility], [address], [place], [address], 09:15:01 prednisone 20 mg tablet 2021 [facility], [address], [place], [address], 16:21:33 Zyrtec 10 mg tablet 2021 [facility], [address], [place], [address], 16:21:33 Patient TargetsNo targets recorded. Patient Instructions Encounter Date Encounter Id Patient Instructions Last Modified By Organization Details Last Modified Time 03/18/2022 [id number] program - program one pager [email or web address] Not available 03/18/2022 16:18:13 03/20/2022 [id number] mammogram: about this test [email or web address] Not available 03/20/2022 09:15:01 [id number] program - program one pager Not available 03/20/2022 09:15:01 Return in 1 year for annual exam. [email or web address] Not available 03/20/2022 09:15:18 I have discussed the management plan in detail with the patient including any medication adjustments and potential for side effects of each. I have engaged the patient and encouraged them to make changes that may affect their overall state of health. I have discussed recommendations for preventative health including routine vaccination against communicable disease including influenza yearly. [email or web address] Not available 03/20/2022 09:15:35 Reason for Referral Surgical Asst Referral for Screening for malignant neoplasm of colon Referring Physician: Yanna Rosado, Family Medicine, Encounter Date: 03/20/2022 Results Created Date Observation Date Name Description Value Unit Range Abnormal Flag Note LastModifiedBy Organization Detail LastModifiedTime 03/20/20 22 03/20/2022 LIPID PANEL cholesterol total (alinity) 216 mg/dL 100-20 0 high Not Available [facility] ([place]) [address] [place], [address], 03/20/2022 19:40:22 03/20/20 22 03/20/2022 LIPID PANEL HDL cholesterol (alinity) 47 mg/dL >=50 low Not Available [facility] (Lab - [place]) [address] [place], [address], 03/20/2022 19:40:22 03/20/20 22 03/20/2022 LIPID PANEL triglyceride s (alinity) 167 mg/dL <150 high Not Available [facility] ([facility] - [place]) [address] [place], [address], 03/20/2022 19:40:22 03/20/20 22 03/20/2022 LIPID PANEL LDL calculated (alinity) 136 mg/dL <100 high <100 mg/dL , Optim al 100-1 29 mg/dL , Near/ Above Optim al 130-1 59 mg/dL , Borde rline High 160-1 89 mg/dL , High >=190 mg/dL , Very high Not Available [facility] ([facility] - [place]) [address] [place], [address], 03/20/2022 19:40:22 03/20/20 22 03/20/2022 LIPID PANEL VLDL calculated (alinity) 33 mg/dL <30 high Not Available [facility] ([place] [address] [place], [address], 03/20/2022 19:40:22 03/20/20 22 03/20/2022 LIPID PANEL non-HDL calculated (alinity) 169 mg/dL <=190 Not Available [facility] ([facility] - [place]) [address] [place], [address], 03/20/2022 19:40:22 03/20/20 22 03/20/2022 LIPID PANEL cholesterol/ HDL ratio (alinity) 4.6 Not Available [facility] ([facility] - [place]) [address] [place], [address], 03/20/2022 19:40:22 03/20/20 22 03/20/2022 COMPR EHENS DANAE METAB OLIC PANEL , NON-F ASTIN G sodium (alinity) 143 mmol/ L 136-14 5 Not Available [facility] ([place]) [address] [place], [address], 03/20/2022 19:40:24 03/20/20 22 03/20/2022 COMPR EHENS DANAE METAB OLIC PANEL , NON-F ASTIN G potassium (alinity) 3.5 mmol/ L 3.5-5. 1 Not Available [facility] ([place]) [address] [place], [address], 03/20/2022 19:40:24 03/20/20 22 03/20/2022 COMPR EHENS DANAE METAB OLIC PANEL , NON-F ASTIN G chloride (alinity) 109 mmol/ L 96-111 Not Available [facility] ([place]) [address] [place], [address], 03/20/2022 19:40:24 03/20/20 22 03/20/2022 COMPR EHENS DANAE METAB OLIC PANEL , NON-F ASTIN G CO2 total (alinity) 23 mmol/ L 22-30 Not Available [facility] ([place]) [address] [place], [address], 03/20/2022 19:40:24 03/20/20 22 03/20/2022 COMPR EHENS DANAE METAB OLIC PANEL , NON-F ASTIN G anion gap (alinity) 11 mmol/ L 4-13 Not Available [facility] ([place]) [address] [place], [address], 03/20/2022 19:40:24 03/20/20 22 03/20/2022 COMPR EHENS DANAE METAB OLIC PANEL , NON-F ASTIN G BUN (alinity) 11 mg/dL 8-25 Not Available [facility] ([place] [address] [place], [address], 03/20/2022 19:40:24 03/20/20 22 03/20/2022 COMPR EHENS DANAE METAB OLIC PANEL , NON-F ASTIN G creatinine (alinity) 0.88 mg/dL 0.60-1 .05 Not Available [facility] ([facility] [place]) [address] [place], [address], 03/20/2022 19:40:24 03/20/20 22 03/20/2022 COMPR EHENS DANAE METAB OLIC PANEL , NON-F ASTIN G BUN/creatini ne ratio (alinity) 13 6-22 Not Available [facility] ([place]) [address] [place], [address], 03/20/2022 19:40:24 03/20/20 22 03/20/2022 COMPR EHENS DANAE METAB OLIC PANEL , NON-F ASTIN G estimated GFR (alinity) 80 mL/mi n/bsa >=60 Estim ated Glome rular Filtr ation Rate (eGFR ) is calcu lated using the CKD-E PI (2020 ) equat ion, inten ded for patie nts 18 years of age and older . If gende r is not docum ented or unkn own , there will be no eGFR calcu latio n. Stage , GFR, Class ifica tion G1, 90, Jennifer l or High G2, 60-89 , Mildl y decre ased G3a, 45-59 , Mildl y to moder ately decre ased G3b, 30-44 , Moder ately to sever anoop decre ased G4, 15-29 , Sever anoop decre ased G5, <15, Kidne y failu re In the absen ce of matthew montezag e, neith er G1 or G2 fulfi ll crite gerald for CKD per KDIGO . Not Available [facility] ([facility] [place]) [address] [place], [address], 03/20/2022 19:40:24 03/20/20 22 03/20/2022 COMPR EHENS DANAE METAB OLIC PANEL , NON-F ASTIN G albumin (alinity) 3.9 g/dL 3.5-5. 0 Not Available [facility] ([facility] [place]) [address] [place], [address], 03/20/2022 19:40:24 03/20/20 22 03/20/2022 COMPR EHENS DANAE METAB OLIC PANEL , NON-F ASTIN G calcium (alinity) 10.1 mg/dL 8.5-10 .0 high Not Available [facility] ([facility] [place]) [address] [place], [address], 03/20/2022 19:40:24 03/20/20 22 03/20/2022 COMPR EHENS DANAE METAB OLIC PANEL , NON-F ASTIN G glucose (alinity) 119 mg/dL 65-125 Not Available [facility] ([place] [address] [place], [address], 03/20/2022 19:40:24 03/20/20 22 03/20/2022 COMPR EHENS DANAE METAB OLIC PANEL , NON-F ASTIN G alkaline phosphatase (alinity) 91 U/L 40-110 Not Available [facility] ([place] [address] [place], [address], 03/20/2022 19:40:24 03/20/20 22 03/20/2022 COMPR EHENS DANAE METAB OLIC PANEL , NON-F ASTIN G ALT (SGPT) (alinity) 42 U/L 8-22 high Not Available [facility] ([place] [address] [place], [address], 03/20/2022 19:40:24 03/20/20 22 03/20/2022 COMPR EHENS DANAE METAB OLIC PANEL , NON-F ASTIN G AST (SGOT) (alinity) 24 U/L 8-45 Not Available [facility] ([place] [address] [place], [address], 03/20/2022 19:40:24 03/20/20 22 03/20/2022 COMPR EHENS DANAE METAB OLIC PANEL , NON-F ASTIN G bilirubin total (alinity) 0.3 mg/dL 0.3-1. 3 Napro xen thera py can false ly eleva te total bilir ubin level s. Not Available [facility] ([facility] - [place]) [address] [place], [address], 03/20/2022 19:40:24 03/20/20 22 03/20/2022 COMPR EHENS DANAE METAB OLIC PANEL , NON-F ASTIN G protein total (alinity) 7.2 g/dL 6.4-8. 3 Not Available [facility] ([facility] [place]) [address] [place], [address], 03/20/2022 19:40:24 03/20/20 22 03/20/2022 HGA1C (HEMO GLOBI N A1C WITH EST AVG GLUCO SE) hemoglobin A1C 5.2 % 4.3-6. 1 Not Available [facility] ([facility] [place]) [address] [place], [address], 03/20/2022 19:45:03 03/20/20 22 03/20/2022 HGA1C (HEMO GLOBI N A1C WITH EST AVG GLUCO SE) estimated average glucose 103 mg/dL Not Available [facility] ([facility] - [place]) [address] [place], [address], 03/20/2022 19:45:03 03/20/20 22 03/20/2022 HEPAT ITIS C ANTIB VIN SCREE N WITH REFLE X TO HCV PCR HCV antibody qualitative (alinity) NEGATI VE negati ve Hepat itis Serol ogy Metho ds = Chemi lumin escen t immun oassa y perfo rmed on Abbot t equip ment Not Available [facility] ([facility] - [place]) [address] [place], [address], 03/20/2022 19:49:04 03/20/20 22 03/20/2022 THYRO ID STIMU LATIN G HORMO NE WITH FREE T4 REFLE X TSH (alinity) 1.731 uIU/m L 0.430- 3.550 Pregn ant patie nts have trime ster- speci fic range s deriv ed from this ramonita zer/t echno logy. For singl eton pregn ancie s: First trime ster, 0.15 - 2.45 uIU/m L Secon d trime ster, 0.35 - 3.20 uIU/m L Third trime ster, 0.40 - 4.30 uIU/m L Not Available [facility] ([facility] [place]) [address] [place], [address], 03/20/2022 19:54:28 03/20/20 22 03/20/2022 HIV1/ HIV2 SCREE N, COMBI HERNAN ANTIG EN AND ANTIB VIN HIV antibodies qualitative (alinity) NEGATI VE negati ve HIV serol ogy scree drew follo ws CDC henri nce. React danae HIV combo scree ns are perfo rmed with chemi lumin escen t immun oassa y (Abbo tt); the scree drew test is for p24 antig en and HIV-1 /-2 antib odies , detec colton in a singl e quali tativ e asses sment . React danae scree ns refle x autom atica lly to antib vin diffe renti ation testi ng (BioR ad Geeni us later al flow immun oassa y). If a negat danae antib vin diffe renti ation test occur s, prese nce of p24 (i.e. , acute HIV infec tion prior to seroc onver grupo) OR false -posi tive scree n resul ts are possi ble. PCR testi ng is sugge sted in these insta nces, to adjud icate the discr epanc y. Note: for patie nts <2 yrs of age, it is recom leydi d that an HIV- 1 Provi ral DNA by PCR be order ed to rule out the prese nce of HIV1/ 2 antig en or antib vin from mater nal origi n. Not Available [facility] ([facility] [place]) [address] [place], [address], 03/20/2022 19:55:07 03/20/20 22 03/20/2022 CBC/D IFF - CLIEN T [facility] ED WBC automated corrected 10.0 x10*3 /uL 3.7-11 .0 Not Available [facility] ([facility] [place]) [address] [place], [address], 03/20/2022 20:21:21 03/20/20 22 03/20/2022 CBC/D IFF - CLIEN T [facility] RBC automated 4.80 x10*6 /uL 3.85-5 .22 Not Available [facility] ([facility] [place]) [address] [place], [address], 03/20/2022 20:21:21 03/20/20 22 03/20/2022 CBC/D IFF - [facility] HGB automated 14.0 g/dL 11.5-1 6.0 Not Available [facility] ([facility] [place]) [address] [place], [id number], 03/20/2022 20:21:21 03/20/20 22 03/20/2022 CBC/D IFF - CLIEN [facility] HCT automated 44.4 % 34.8-4 6.0 Not Available [facility] ([facility] [place] [address] [place], [address], 03/20/2022 20:21:21 03/20/20 22 03/20/2022 CBC/D IFF - [facility] MCV automated 92.5 fL 78.0-1 00.0 Not Available [facility] ([facility] [place] [address] [place], [address], 03/20/2022 20:21:21 03/20/20 22 03/20/2022 CBC/D IFF - [facility] MCH automated 29.2 pg 26.0-3 2.0 Not Available [facility] ([facility] [place]) [address] [place], [address], 03/20/2022 20:21:21 03/20/20 22 03/20/2022 CBC/D IFF - CLI[facility] MCHC automated 31.5 g/dL 31.0-3 5.5 Not Available [facility] ([facility] [place]) [address] [place], [address], 03/20/2022 20:21:21 03/20/20 22 03/20/2022 CBC/D IFF - CLIEN [facility] RDW-CV automated 13.2 % 11.5-1 5.5 Not Available [facility] ([facility] [place] [address] [place], [address], 03/20/2022 20:21:21 03/20/20 22 03/20/2022 CBC/D IFF - CLI[facility] platelets automated 300 x10*3 /uL 150-40 0 Not Available [facility] ([facility] - [place]) [address] [place], [id number], 03/20/2022 20:21:21 03/20/20 22 03/20/2022 CBC/D IFF - [facility] MPV automated 10.6 fL 8.7-12 .5 Not Available [facility] ([facility] [place]) [address] [place], [address], 03/20/2022 20:21:21 03/20/20 22 03/20/2022 CBC/D IFF - CLI[facility] neutrophil % 78 % Not Available [facility] ([facility] [place] [address] [place], [address], 03/20/2022 20:21:21 03/20/20 22 03/20/2022 CBC/D IFF - CLI[facility] lymphocyte % 16 % Not Available [facility] ([facility] [place] [address] [place], [address], 03/20/2022 20:21:21 03/20/20 22 03/20/2022 CBC/D IFF - CLIEN [facility] monocyte % 5 % Not Available [facility] ([facility] [place] [address] [place], [address], 03/20/2022 20:21:21 03/20/20 22 03/20/2022 CBC/D IFF - CLIEN [facility] eosinophil % 0 % Not Available [facility] ([facility] [place] [address] [place], [address], 03/20/2022 20:21:21 03/20/20 22 03/20/2022 CBC/D IFF - CLI[facility] basophil % 0 % Not Available [facility] ([facility] [place] [address] [place], [address], 03/20/2022 20:21:21 03/20/20 22 03/20/2022 CBC/D IFF - CLI[facility] neutrophil # 7.74 x10*3 /uL 1.50-7 .70 high Not Available [facility] ([facility] [place] [address] [place], [address], 03/20/2022 20:21:21 03/20/20 22 03/20/2022 CBC/D IFF - CLIEN T [facility] lymphocyte # 1.63 x10*3 /uL 1.00-4 .80 Not Available [facility] ([facility] [place] [address] [place], [address], 03/20/2022 20:21:21 03/20/20 22 03/20/2022 CBC/D IFF - CLIEN T [facility] monocyte # 0.45 x10*3 /uL 0.20-1 .10 Not Available [facility] ([facility] [place]) [address] [place], [address], 03/20/2022 20:21:21 03/20/20 22 03/20/2022 CBC/D IFF - CLIEN T [facility] eosinophil # <0.10 x10*3 /uL <=0.50 Not Available [facility] ([facility] [place] [address] [place], [address], 03/20/2022 20:21:21 03/20/20 22 03/20/2022 CBC/D IFF - CLIEN T [facility] basophil # <0.10 x10*3 /uL <=0.20 Not Available [facility] ([facility] [place]) [address], [place], [address], 03/20/2022 20:21:21 03/20/20 22 03/20/2022 CBC/D IFF - CLI[facility] immature granulocyte % 1 % 0-1 The immat ure granu locyt e fract ion (IGF) quant ifies total circu latin g myelo cytes , metam yeloc ytes, and promy elocy jaye. It is used to evalu ate immun e respo nses to infec tion, infla mmati on, or other stimu li of the bone marro w. Cauti on is advis ed in inter preti ng test resul ts in neona jaye who jennifer lly have great er numbe rs of circu latin g immat ure blood cells . Not Available [facility] ([facility] [place]) [address] [place], [address], 03/20/2022 20:21:21 03/20/20 22 03/20/2022 CBC/D IFF - CLIEN T [facility] immature granulocyte # 0.11 x10*3 /uL <0.10 high Not Available [facility] ([facility] - [place]) [address], [place], [address], 03/20/2022 20:21:21 Result Notes None recorded. Problems Name Problem SNOMED Code Status Onset Date Resolution Date Notes Provider Name and Address Organization Details Recorded Time Environmental allergy 652460351 Active 2021 BELA Small [address] [place] [address], [address], [facility] 2 09:11:38 Hyperlipidemia 80716480 Active 2021 SACHIN SmallDu [address] [place] [address], [address], [facility] 2 07:27:03 Anxiety 99036038 Active [address], [address], [facility] 2 08:35:55 Problem Notes None recorded. Procedures Surgical History Date Name Laterality Status Provider Name and Address Organization Details Recorded Time Eye Surgery completed Yobany Hercules [facility] 03/18/2022 15:49:00 repair of abdominal fistula completed Yobany Hercules [facility] 03/18/2022 15:49:49 delivery completed Yobany Fernández rt [facility] 03/18/2022 15:49:54 Total Hysterectomy completed Sybil Lara RN [facility] 03/20/2022 08:45:47 Tubal Ligation completed Sybil Sullivan RN [facility] 03/20/2022 08:46:09 Imaging Results None recorded. Procedure Notes None recorded. Medical Equipment None Reported. Allergies No known drug allergies Medications Name Sig Start Date Stop Date Status Note LastModified by Organization Details LastModified Time cetirizine 10 mg tablet TAKE ONE TABLET BY MOUTH EVERY DAY active Not Available Not Available No t Available prednisone 20 mg tablet TAKE TWO TABLETS BY MOUTH EVERY DAY FOR FIVE DAYS active Not Available Not Available No t Available hydroxyzine HCl 25 mg tablet TAKE ONE TABLET BY MOUTH THREE TIMES DAILY NEEDED 2021 active Not Available Not Available Not Joseph labkaro rosuvastatin 10 mg tablet Take 1 tablet every day by oral route. active Not Available Not Available No t Available Vitals Date Recorded Body weight Oxygen saturation Oxygen saturation in Arterial blood by Pulse oximetry Body temperature Heart rate Body mass index (BMI) Body height Respiratory rate Systolic blood pressure Diastolic blood pressure Provider Name and Address Organization Details Last Updated DateTime 2 048327. 09 g 98 % 98 % 97.3 [degF] 72 /min 39.7 kg/m2 160.02 cm 18 /min 124 mm[Hg] 81 mm[Hg] Yobany Hercules [facility] 15:52:18 Date Recorded Body height Body mass index (BMI) Body weight Respiratory rate Oxygen saturation Oxygen saturation in Arterial blood by Pulse oximetry Heart rate Body temperature Systolic blood pressure Diastolic blood pressure Provider Name and Address Organization Details Last Updated DateTime 2 160.02 cm 39.9 kg/m2 445556. 68 g 18 /min 98 % 98 % 86 /min 97.1 [degF] 120 mm[Hg] 80 mm[Hg] Sybil Lara RN [place] [facility] 2 08:40:52 Social History Question Answer Notes LastModified by Organization Details LastModified Time Tobacco Smoking Status Never Smoker Yobany Hercules [facility] 03/18/2022 15:45:56 Are You Blind Or Do You Have Difficulty Seeing? No Information not available 03/18/2022 What Is Your Level Of Caffeine Consumption? Moderate Information not available 03/18/2022 Are You Deaf Or Do You Have Serious Difficulty Hearing? No Information not available 03/18/2022 What Type Of Diet Are You Following? REGULAR Information not available 03/18/2022 What Is The Highest Grade Or Level Of School You Have Completed Or The Highest Degree You Have Received? LV40687-6 Information not available 03/18/2022 Do You Use Insect Repellent Routinely? No Information not available 03/18/2022 Do You Feel Safe In Your Relationship? Yes Information not available 03/20/2022 How Often Do You Need Help Reading Or Understanding Information About Your Medical Problems? (age 18 And Up) Sometimes Information not available 03/20/2022 SDoH Date 03/18/2022 [email or web address] Information not available 03/18/2022 Are You Taking Any Over The Counter Medication, Herbal Therapies And/or Supplements? No Information not available 03/20/2022 Homemade Tattoos? No Information not available 03/18/2022 History Of Incarceration? (18 And Up) No Information not available 03/18/2022 Advance Directives Status (18 Y/o And Up) Patient Declines At This Time Information not available 03/18/2022 Family History Of Substance Abuse? No Information not available 03/20/2022 Family History Of Mental Or Behavioral Health Problems? No Information not available 03/20/2022 A Social History Update Completed 03/18/2022 Information not available 03/18/2022 Do You Have Sex With Men, Women, Or Both? Men Information not available 03/20/2022 Are You Diabetic? No Information not available 03/18/2022 Sliding Fee Q 1 No [email or web address] Informati on not available 03/18/2022 Sliding Fee Q 2 No [email or web address] Informati on not available 03/18/2022 Sliding Fee Q 3 No [email or web address] Informati on not available 03/18/2022 Sliding Fee Q 4 0 [email or web address] Informati on not available 03/18/2022 Sliding Fee Q 5 0 [email or web address] Informati on not available 03/18/2022 Sliding Fee Q Date 03/18/2022 [email or web address] Information not available 03/18/2022 Have You Seen A Dentist In The Past 12 Months? No Information not available 03/20/2022 Control Method No Method: Other Reason Hysterectomy Information not available 03/20/2022 What Was The Date Of Your Most Recent Tobacco Screening? 03/20/2022 Information not available 03/20/2022 Do You Use Protection During Sex? No Information not available 03/18/2022 What Is Your Relationship Status? Information not available 03/18/2022 Do You Use Your Seat Belt Or Car Seat Routinely? Yes Information not available 03/18/2022 Are You Sexually Active? Yes Information not available 03/18/2022 Do You Have Smoke And Carbon Monoxide Detectors In Your Home? No In Process Of Moving, [place] Permenant Residence In [place] At This Time Information not available 03/18/2022 Are You Passively Exposed To Smoke? Yes Information not available 03/18/2022 Do You Use Sunscreen Routinely? Yes Information not available 03/18/2022 How Many Days In The Past Year Have You Consumed 4 Or More Drinks? 2 Information not available 03/20/2022 Sex: Female Functional Status Question Answer Note LastModified by Organizat ion Details LastModified Time Do you use any illicit or recreational drugs? No Information not available 03/18/2022 Do you or have you ever used any other forms of tobacco or nicotine? No Information not available 03/18/2022 What is your level of alcohol consumption? Occasional Information not available 03/18/2022 Are you currently employed? No Information not available 03/18/2022 Do you have transportation difficulties? No Information not available 03/18/2022 What is your exercise level? Occasional Information not available 03/18/2022 Mental Status None recorded. Family History Relationship Description Onset Age of this Age Resolved Age Notes LastModified by Organization Details LastModified Time Mother Malignant tumor of colon Not available 2021 15:44:54 Father Malignant tumor of pharynx Not available 2021 15:44:18 Sister Malignant neoplasm of uterus Not available 2021 15:44:39 Sister Malignant tumor of colon Not available 2021 15:44:57 Sister Myocardial infarction Not available 03/18 15:45:24 Sister Diabetes mellitus Not available 2021 08:45:10 Medical History Condition Response Coronary Artery Disease N Gout N Kidney Stones N Blood Diseases N Hyperthyroidism N Medication adverse effects N Hypothyroidism N COPD N Depression Y Developmental or Behavioral Disorders N Anxiety Disorder Y Vision or Eye Problems N Arthritis N Serious Illness or Injuries N Congenital Anomalies N Cancer N IBS Y Stroke N Blood clot N Bladder or Kidney Problems N Hospital Admission other than N High Cholesterol N Liver Disease N Fibromyalgia N Crohn's N Kidney Disease N Heart Problems N Colitis N Ear or Hearing Problems N Eczema/Hives/other skin conditions Y ADD or ADHD N Migraines N Skin Problems N Anemia Y Constipation N Diabetes N Bedwetting N Seizures/Epilepsy N Tuberculosis N Muscle/Joint/Bone Problems N Diverticulitis N Asthma N Allergies N Substance Abuse N Ulcerative Colitis N GERD/Reflux N Heart Disease N Pulmonary Embolism N Hypertension N Chicken Pox Y Osteoporosis N Gynecological History Statement/Question Response Breast Implants? N Hysterectomy Y Abnormal Pap N Endometriosis? N Fibroids/Ovarian Cysts? N Menses Monthly N STIs/STDs N Vaginal Infections? N Age at Menarche 14 Age at First Child 19 Hormone problems? N Obstetrics History GPAL:G 4 P 2 0 2 2 Type Value Full Term 2 Spontaneous 2 Living 2 Total 4 Immunizations Vaccine Type Date Status Note Provider Nam e and Address Organization Details Recorded Time Tdap 03/20/2022 completed SACHIN Small-C [address] [place], [address], W - [facility] 03/20/2022 09:16:26 Past Encounters Encounter ID Performer Location Encounter Start Date Encounter Closed Date Diagnosis/Indication Diagnosis SNOMED-CT Code Diagnosis ICD10 Code Diagnosis Note [id number] SACHIN Butt [facility] [place] [address] [place] [address] 03/18/2022 15:13:37 03/18/2022 18:17:14 Finding of body mass index 255522997 Z68.39 E66.8 Contact dermatitis 12023 004 L25.9 Customary discussion of prescribed medication benefits, side effects, and compliance was done. Patient was instructed on proper skin care. Discussed disease presentati on, treatment options, progressio n, complicati ons, and outcomes with patient during this office visit. [id number] Mary Ann Rosado DO [facility] [place] [address] [place] [address] [place] [address] 03/20/2022 08:32:46 03/20/2022 09:22:01 Adult health examination 484941719 Z00.00 order labs today Finding of body mass index 986202882 Z68.39 E66.8 Administra tion of diphtheria, pertussis, and tetanus vaccine 355243573 Z23 admin today Screening mammography 24 912931 Z12.31 order mammo Screening for malignant neoplasm of colon 874933403 Z12.11 refer to GI Hepatitis C screening 41 4145780 Z11.59 HIV screening 394684168 Z11.4 Anxiety 22862283 F41.9 Health Concerns Section Related Observation LastModified by Organization Detai ls LastModified Time None Recorded Concern Status LastModified by Organization Details LastModified Time None Recorded Advance Directives Directive None Recorded Payers Insurance Date Sequence Insurance Name Policy Number Policy Silva Covered Member ID Silva Member ID Guarantor Name 03/23/2022 1 [employer] JORJE WHELAN - [employer] (POS) Ermias Cervantes [id number] Noemi Cervantes Notes Date Note Type Note Provider Name and Address Organization Details Recorded Time 2 text/html Patient presents to clinic with c/o bilateral lower leg redness and itching. Started about 6 months ago. Intermittent. No drainage. No fever. Mild edema with redness and itching but not consistent. No h/o chf. No h/o diabetes. No h/o venous insufficiency. No other complaints.BMI in the Obese range. 5210 handout reviewed with patient. SACHIN Butt [address] [place], [address] 03/18/2022 18:23:50 2 text/html BMIReported bystaff.Notes:BMI in the Obese range. 5210 handout reviewed with patient.Immunization QuestionnaireReported bypatient.Notes:Immunizati on Screening: Is the patient sick today? No Has the patient had a serious reaction to a vaccine in the past? No Has the patient received vaccinations in the past 4 weeks? No Does the patient have allergies to medications, food, a vaccine component, or latex? No Pre-VisitDate & Time Reviewed:03/19/22Caller: Result: already confirmed - completed without call- Outstanding Orders (labs & referrals):- Records needed: N/A- Records notes:- Additional Notes:establish care The patient presents to the clinic today to establish care. She reports she has anxiety and gets itchy patches on her arms. She would like to try something as needed for anxiety. Preventive: MMR: she states UTDTdap: orderHIV: orderHep C: orderCRC: refer to GIMammo: orderCervical Ca: hysterectomyShingles: advised SACHIN Small-C [address] [place], [address], [place] - [facility] 03/20/2022 09:17:11 OBGyn Episode No OBEpisode recorded.
--- OUTSIDE RECORDS SUMMARY | 2025-02-07 10:50 | XMS_ITS | Encounter Summary ---
Author Organization [facility] Address [address] [place] [address] Care Team Providers Care Call Or Contact Centre Operator Name Role Phone Megan Fitzgerald MD Primary Care Provider +1- [phone] Encounter Details Date Type Department Care Team (Late st Contact Info) Description 01/02/2025 Results Follow-Up [facility] [address] [place] [address] Megan Fitzgerald MD [address] [place] [address] Social History Tobacco Use Types Packs/Day Years [...] place to sleep or slept in a retirement (including now)? No 06/21/2024 PHQ-9 Answer Date [...] any time in the past 12 m [facility], were you homeless or living in a retirement (including now)? No 10/24/2024 Utilities Answer Date [...] Description 04/03/2025 11:20 AM EDT Office Visit [facility] [address] [place] [address] Megan Fitzgerald MD [address] [place] [address] documented as of this encounter Visit Diagnoses Not on filedocumented in this encounter Additional Health Concerns Assessment Noted Time PHQ-9 Depression Total Score: 0 01/02/20 25 12:40 PM EDT A Body Mass Index follow-up plan has been documented for the patient 01/01/2025 1:29 PM EDT documented as of this encounter Care Teams Call Or Contact Centre Operator Relationship Specialty Start Date End Date [place] [address] PCP - General 06/28/24 documented as of this encounter
--- OUTSIDE RECORDS SUMMARY | 2025-02-07 10:50 | XMS_ITS | Encounter Summary ---
Author Organization [facility] Address [address] [place] [address] Care Team Providers Care Painter And Decorator Name Role Phone Megan Fitzgerald MD Primary Care Provider +1- [phone] Encounter Details Date Type Department Care Team (Latest Contact Info) Description 01/01/2025 Travel Social History Tobacco Use Types Packs/Day [...] to sleep or slept in a senior living (including now)? No 06/21/2024 PHQ-9 Answer Date [...] in the past 12 m [facility], were you homeless or living in a senior living (including now)? No 10/24/2024 Utilities Answer Date Recorded In the past 12 months has th e [employer], gas, oil, or water company threatened to [...] much Not at all 01/01/2025 12:40 PM Yesenia Rea Feeling tired or having bryson le energy Not at all 01/01/2025 12:40 PM EDYesenia Vargas Poor appetite or overeating Not at all 01/01/2025 12 :40 PM LINAT Yesenia Olsen Feeling bad about yourself - or that you are a failure or have let yourself or your family down Not at all 01/01/2025 12:40 PM LINAT Yesenia Eduardo Trouble concentrating on thi ngs, such as reading the newspaper or watching television Not at all 01/01/2025 12:40 PM Yesenia Rea Moving or speaking so slowly that other people could have noticed? Or the opposite - being so fidgety or restless that you have been moving around a lot more than usual. Not at all 01/01/2025 12:40 PM Yesenia Rea Thoughts that you would be better off or hurting yourself in some way Not at all 01/01/2025 12:40 PM Yesenia Rea Patient Health Questionnaire -9 Score 0 01/01/2025 12:40 PM Yesenia Rea * Calculated C-SSRS Risk Score (Lifetime/Recent) Answer [...] (Past 1 Month) No 01/01/2025 12:41 PM Yasmine Rea 6. Suicidal Behavior (Lifetime) No 12:41 PM Yesenia Rea documented as of this encounter Plan of Treatment Upcoming Encounters Date Type Department Care Team (Late st Contact Info) Description 04/03/2025 11:20 AM EDT Office Visit [facility] [address] [place] [address] Megan Fitzgerald MD [address] [place] [address] documented as of this encounter Visit Diagnoses Not on filedocumented in this encounter Additional Health Concerns Assessment Noted Time PHQ-9 Depression Total Score: 0 01/02/20 25 12:40 PM EDT A Body Mass Index follow-up plan has been documented for the patient 01/01/2025 1:29 PM EDT documented as of this encounter Care Teams Painter And Decorator Relationship Specialty Start Date End Date Megan Fitzgerald MD [address] [place] [address] PCP - General 06/28/24 documented as of this encounter
--- OUTSIDE RECORDS SUMMARY | 2025-02-07 10:50 | XMS_ITS | Encounter Summary ---
Author Organization [facility] Address [address] [place] [address] Care Team Providers Care Commercial Stripper Name Role Phone Megan Fitzgerald MD Primary Care Provider +1- [phone] Encounter Details Date Type Department Care Team (Late st Contact Info) Description 07/12/2024 Outside Procedure External Location [address] [place] [address] Megan Fitzgerald MD [address] [place] [address] Social History Tobacco Use Types Packs/Day Years Used Date Smoking Tobacco: Never Smokeless Tobacco: Never Alcohol Use Standard Drinks/Week Comments Not Currently 0 (1 standard drink = 0.6 oz pur e alcohol) Humiliation, Afraid, Rape, and Kick questionnair e Answer Date Recorded Within the last year, have y ou been afraid of your partner or ex-partner? No 06/21/2024 Within the last year, have y ou been humiliated or emotionally abused in other ways by your partner or ex-partner? No Within the last year, have y ou been kicked, hit, slapped, or otherwise physically hurt by your partner or ex-partner? No 06/21/2024 Within the last year, have y ou been raped or forced to have any kind of sexual activity by your partner or ex-partner? No 06/21/2024 PHQ-2 Answer Date Recorded Patient Health Questionnaire-2 Score 0 06/28/2024 Hunger Vital Sign Answer Date Recorded Within the past 12 months, y ou worried that your food would run out before you got the money to buy more. Never true 06/21/20 24 Within the past 12 months, t he food you bought just didn't last and you didn't have money to get more. Never true 06/21/2024 PRAPARE - Transportation Answer Date Re corded In the past 12 months, has l ack of transportation kept you from medical appointments or from getting medications? No 05/25 In the past 12 months, has l ack of transportation kept you from meetings, work, or from getting things needed for daily living? No 06/21/2024 Housing Stability Vital Sign Answer Padilla e [...] place to sleep or slept in a correction (including now)? No 06/21/2024 Utilities Answer Date Recorded In the past 12 months has th e electric, gas, oil, or water company threatened to shut off services in your home? No 06/21/2024 Comments No Sex and Gender Information Value Date Recorded Sex Assigned at Not on file Legal Sex Female 3:40 PM EDT Gender Identity Not on file Sexual Orientation Not on file documented as of this encounter Plan of Treatment Upcoming Encounters Date Type Department Care Team (Late st Contact Info) Description 04/03/2025 11:20 AM EDT Office Visit [facility] [place] [address] [place] [address] documented as of this encounter Procedures Procedure Name Priority Date/Time Associated Diagnosis Comments MAMMOGRAPHY BREAST SCREENING TOMOSYNTHESIS BILATERAL 07/12/2024 9:09 AM EST documented in this encounter Results * Mammography Breast Screening Tomosynthesis Bilateral (07/12/2024 9:09 AM EST) Anatomical Region Laterality Modality Breast Bilateral Mammography 07/12/2024 9:09 AM EST Narrative 07/26/2024 5:05 PM EST [address] [address] Name: AUBRIE RODRIGUEZ Exam Date: 07/12/2024 : 1970 Age 53 years Gender: F Physician: MEGAN FITZGERALD Facility[facility] Facility HSV: Outpatient Exam: NANCY SCRN MAMMO [...] the patient has breast surgery or biopsy, FDA/MQSA Regulatory Guidelines mandate that this facility receive pathologic results for follow-up correlation. Electronically signed by:Ivan Otero MD07/26/2024 05:01 PM EST Dictated By: Ivan Otero Transcribed By: Transcribed On: 07/12/2024 10:02 AM Electronically signed by: Ivan Otero 07/12/2024 Thank you for referring AUBRIE RODRIGUEZ to [facility]. Legally authenticated by MOHSEN JIMENEZ 2024-07-12 10:02:28 Procedure Note Provider, Generic [place] - 07/26/2024 [address] [place] [address] Name: AUBRIE RODRIGUEZ Exam Date: 07/12/2024 : 1970 Age 53 years Gender: F Physician: MEGAN FITZGERALD Facility: [facility] Facility HSV: Outpatient Exam: NANCY SCRN MAMMO [...] the patient has breast surgery or biopsy, FDA/MQSA Regulatory Guidelines mandate that this facility receive pathologicresults for follow-up correlation. Electronically signed by:Ivan Otero MD07/26/2024 05:01 PM [facility] Dictated By: Ivan Otero Transcribed By: Transcribed On: 07/12/2024 10:02 AM Electronically signed by: Ivan Otero 07/12/2024 Thank you for referring AUBRIE RODRIGUEZ to [facility]. Legally authenticated by MOHSEN JIMENEZ 2024-07-12 10:02:28 Megan Fitzgerald MD IMG BI PROCEDURES Final Re sult documented in this encounter Visit Diagnoses Not on filedocumented in this encounter Additional Health Concerns Assessment Noted Time A Body Mass Index follow-up plan has been documented for the patient 06/28/2024 11:50 AM EST documented as of this encounter Care Teams Commercial Stripper Relationship Specialty Start Date End Date Megan Fitzgerald MD [address] [place] [phone] PCP - General 06/28/24 documented as of this encounter
--- OUTSIDE RECORDS SUMMARY | 2025-02-07 10:51 | XMS_ITS | Encounter Summary ---
Author Organization [facility] Address [address] [place] [address] Care Team Providers Care Absorption Plant Operator Name Role Phone Megan Fitzgerald MD Primary Care Provider +1- [phone] Reason for Visit * Reason Onset Date Comments HCN Clinical Concern/Question 11/13/2024 Encounter Details Date Type Department Care Team (Late st Contact Info) Description 11/13/2024 Telephone [facility] Medicine [address] [place] [address] Megan Fitzgerald MD [address] [place] [address] HCN Clinical Concern/Question Social History Tobacco Use Types Packs/Day Years [...] place to sleep or slept in a penitentiary (including now)? No 06/21/2024 PHQ-9 Answer Date [...] any time in the past 12 m [facility], were you homeless or living in a penitentiary (including now)? No 10/24/2024 Utilities Answer Date [...] as of this encounter Functional Status * Calculated C-SSRS Risk Score (Lifetime/Recent) Answer Date of Assessment Author No Risk Indicated 11/20/2024 7:20 PM EDT Karly Sellers RN * Question Answer Date of Assessment Author 1. Wish to be (Past 1 Month) No 025 7:20 PM EDT Karly Sellers, KIM 2. Non-Specific Active Suici montez Thoughts (Past 1 Month) No 11/20/2024 7:20 PM EDT Karly Sellers, RN 6. Suicidal Behavior (Lifetime) No 7:20 PM EDT Karly Sellers RN documented as of this encounter Miscellaneous Notes * Telephone Encounter - Suzie Leal - 11/13/2024 10:00 AM EDT Called and informed pt * Telephone Encounter - Lise Jenkins - 11/13/2024 9:12 AM EDT Clinical Concern/Question Reason for Call: Pt wants to let know that the Gabapentin is not helping for her leg/foot and she would like to see about getting an MRI scheduled as they discussed. Also, she has a feverblister and is asking if something can be called in for that? Pls adivse. Thanks Best contact number: [phone] (mobile) Optimal time of day to reach caller: ANYTIME Additional comments/information from caller: None Note: Please do not reply to this message. Follow-up communication and further actions as a result of this message need to be communicated with the patient directly, if the patient is not active onMyChart. If the patient is active on MyChart, they will receive notification of the communication/outcome via MyChart. documented in this encounter Plan of Treatment Upcoming Encounters Date Type Department Care Team (Late st Contact Info) Description 04/03/2025 11:20 AM EDT Office Visit [facility] [address] [place] [address] Megan Fitzgerald MD [address] [place] [address] documented as of this encounter Visit Diagnoses Not on filedocumented in this encounter Additional Health Concerns Assessment Noted Time PHQ-9 Depression Total Score: 0 11/01/19 25 10:58 AM EDT A Body Mass Index follow-up plan has been documented for the patient 10/31/2024 4:03 PM EDT documented as of this encounter Care Teams Absorption Plant Operator Relationship Specialty Start Date End Date Megan Fitzgerald MD [address] [place] [address] PCP - General 06/28/24 documented as of this encounter
--- OUTSIDE RECORDS SUMMARY | 2025-02-07 10:51 | XMS_ITS | Encounter Summary ---
Author Organization [facility] Address [address] [place] [address] Care Team Providers Care Overlock Waistline Joiner Name Role Phone Megan Fitzgerald MD Primary Care Provider +1- [phone] Encounter Details Date Type Department Care Team (Late st Contact Info) Description 11/17/2024 Results Follow-Up [facility] [address] [place] [address] Megan Fitzgerald MD [address] [place] [address] Social History Tobacco Use Types [...] place to sleep or slept in a fdc (including now)? No 06/21/2024 PHQ-9 Answer Date [...] any time in the past 12 m [facility], were you homeless or living in a fdc (including now)? No 10/24/2024 Utilities Answer Date Recorded In the past 12 months has th e [employer], gas, oil, or water [employer] threatened to shut off services in your [...] things Not at all 01/01/2025 12:40 PM Yesenia Rea Feeling down, depressed, or hopeless Not at all 01/01/2025 12:40 PM EDT Yesenia Olsen Patient Health Questionnaire -2 Score 0 01/01/2025 12:40 PM Yesenia Rea * Question Answer Date of Assessment Author Trouble falling or staying asleep, or sleeping too much Not at all 01/01/2025 12:40 PM Yesenia Rea Feeling tired or having bryson le energy Not at all 01/01/2025 12:40 PM EDT Yesenia Olsen Poor appetite or overeating Not at all 01/01/2025 12 :40 PM Yesenia Rea Feeling bad about yourself - or that [...] (Past 1 Month) No 025 12:41 PM EDT Yesenia Olsen P 2. Non-Specific Active Suici montez Thoughts (Past 1 Month) No 01/01/2025 12:41 PM EDT Yasmine Olsen P 6. Suicidal Behavior (Lifetime) No 5 12:41 PM EDT Yesenia Olsen P documented as of this encounter Plan of Treatment Upcoming Encounters Date Type Department Care Team (Late st Contact Info) Description 04/03/2025 11:20 AM EDT Office Visit [facility] [address] [place] [address] Megan Fitzgerald MD [address] [place] [address] documented as of this encounter Visit Diagnoses Not on filedocumented in this encounter Additional Health Concerns Assessment Noted Time PHQ-9 Depression Total Score: 0 11/01/19 25 10:58 AM EDT A Body Mass Index follow-up plan has been documented for the patient 10/31/2024 4:03 PM EDT documented as of this encounter Care Teams Overlock Waistline Joiner Relationship Specialty Start Date End Date Megan Fitzgerald MD [address] [place] [address] PCP - General 06/28/24 documented as of this encounter
--- OUTSIDE RECORDS SUMMARY | 2025-02-07 10:51 | XMS_ITS | Encounter Summary ---
Author Organization [facility] Address [address] [place] [address] Care Team Providers Care Manager Market Intelligence Name Role Phone Megan Fitzgerald MD Primary Care Provider +1- [phone] Encounter Details Date Type Department Care Team (Late st Contact Info) Description 11/16/2024 Outside Procedure External Location [address] [place] [address] Megan Fitzgerald MD [address] [place] [address] Social History Tobacco Use Types Packs/Day [...] place to sleep or slept in a detention (including now)? No 06/21/2024 PHQ-9 Answer Date [...] any time in the past 12 m [facility], were you homeless or living in a detention (including now)? No 10/24/2024 Utilities Answer Date Recorded In the past 12 months has th e [employer], gas, oil, or water company threatened to [...] Description 04/03/2025 11:20 AM EDT Office Visit [facility] Medicine [address] [place] [address] Megan Fitzgerald MD [address] [place] [address] documented as of this encounter Procedures Procedure Name Priority Date/Time Associated Diagnosis Comments MR LUMBAR SPINE WO IV CONTRAST 11/16/2024 8:14 AM EDT documented in this encounter Results * MR Lumbar Spine wo IV Contrast (11/16/2024 8:14 AM EDT) Anatomical Region Laterality Modality L-spine Magnetic Resonan ce 11/16/2024 8:14 AM EDT Narrative 11/16/2024 2:32 PM EDT [address] [address] Name: AUBRIE RODRIGUEZ Exam Date: 11/16/2024 : 1970 Age 54 years Gender: F Physician: MEGAN FITZGERALD Facility: [facility] Facility HSV: Outpatient Exam: MRI LUMBAR SPINE [...] Thank you for referring AUBRIE RODRIGUEZ to [facility]. Legally authenticated by LUCIE SOLIZ 2024-11-16 11:11:00 Procedure Note Provider, Generic [place] - 11/16/2024 [id number] [place] [address] Name: AUBRIE RODRIGUEZ Exam Date: 11/16/2024 : 1970 Age 54 years Gender: F Physician: MEGAN FITZGERALD Facility: [facility] Facility HSV: Outpatient Exam: MRI LUMBAR SPINE [...] Thank you for referring AUBRIE RODRIGUEZ to [facility]. Legally authenticated by LUCIE SOLIZ 2024-11-16 11:11:00 Megan Fitzgerald MD IM MRI PROCEDURES Final R esult documented in this encounter Visit Diagnoses Not on filedocumented in this encounter Additional Health Concerns Assessment Noted Time PHQ-9 Depression Total Score: 0 11/01/19 25 10:58 AM EDT A Body Mass Index follow-up plan has been documented for the patient 10/31/2024 4:03 PM EDT documented as of this encounter Care Teams Manager Market Intelligence Relationship Specialty Start Date End Date Megan Fitzgerald MD [address] [place] [address] PCP - General 06/28/24 documented as of this encounter
--- OUTSIDE RECORDS SUMMARY | 2025-02-07 10:51 | XMS_ITS | Encounter Summary ---
Author Organization [facility] Address [address] [place] [address] Care Team Providers Care Watermelon Harvesting Supervisor Name Role Phone Megan Fitzgerald MD Primary Care Provider [phone]- [phone] Reason for Visit * Reason Comments Pre-Visit Review Encounter Details Date Type Department Care Team (Late st Contact Info) Description 12/28/2024 Education [facility] [address] [place] [phone] Ghazal Pinon, RN Social History Tobacco Use Types Packs/Day [...] place to sleep or slept in a mcc (including now)? No 06/21/2024 PHQ-9 Answer Date [...] any time in the past 12 m [facility], were you homeless or living in a mcc (including now)? No 10/24/2024 Utilities Answer Date Recorded In the past 12 months has th e [employer], gas, oil, or water company threatened to shut off services in your home? No 10/24/2024 Comments No Sex and Gender Information Value Date Recorded Sex Assigned at Not on file Legal Sex Female 3:40 PM EDT Gender Identity Not on file Sexual Orientation Not on file documented as of this encounter Miscellaneous Notes * Clinician Note - Ghazal Pinon RN - 12/28/2024 11:31 AM EDT Pre-Visit Review Note The following information [...] Ghazal Pinon RN,BSN Pharmacy Patient Support Services Pre-Visit Review Summary: 5 medications pre-charted, 1 immunizations pended, 0 immunizations scheduled at Pharmacy, 13 minutes in duration, Clinic: [facility]. documented in this encounter Plan of Treatment Upcoming Encounters Date Type Department Care Team (Late st Contact Info) Description 04/03/2025 11:20 AM EDT Office Visit [facility] [address] [place] [address] Megan Fitzgerald MD [address] [place] [address] documented as of this encounter Visit Diagnoses Not on filedocumented in this encounter Additional Health Concerns Assessment Noted Time PHQ-9 Depression Total Score: 0 11/01/19 25 10:58 AM EDT A Body Mass Index follow-up plan has been documented for the patient 11/21/2024 7:44 AM EDT documented as of this encounter Care Teams Watermelon Harvesting Supervisor Relationship Specialty Start Date End Date Megan Fitzgerald MD [address] [place] [address] PCP - General 06/28/24 documented as of this encounter
--- OUTSIDE RECORDS SUMMARY | 2025-02-07 10:51 | XMS_ITS | Encounter Summary ---
Author Organization [facility] Address [address] [place] [address] Care Team Providers Care Gas Appliance Servicer Helper Name Role Phone Megan Fitzgerald MD Primary Care Provider [phone]- [phone] Reason for Visit * Reason Onset Date Comments HCN Clinical Concern/Question 11/16/2024 Encounter Details Date Type Department Care Team (Late st Contact Info) Description 11/16/2024 Telephone [facility] [address] [place] [address] Megan Fitzgerald MD [address] [place] [address] HCN Clinical Concern/Question Social History [...] any time in the past 12 m [facility], were you homeless or [...] * Telephone Encounter - Suzie Leal - 11/17/2024 8:49 AM EDT Called pt and informed * Telephone Encounter - Lise Jenkins - 11/16/2024 9:31 AM EDT Clinical Concern/Question Reason for Call: Pt wants to let know that she had her MRI done this morning. Also, shesays the Juan pentin doesn't last long enough for her so she'd like to increase the dose as they discussed doing. Pls advise. Thanks Best contact number: [phone] (mobile) Optimal time of day to reach [...] Description 04/03/2025 11:20 AM EDT Office Visit [facility] [address] [place] [phone] Megan Fitzgerald MD [facility] [place] [address] documented as of this encounter Visit Diagnoses Not on filedocumented in this encounter Additional Health Concerns Assessment Noted Time PHQ-9 Depression Total Score: 0 11/01/19 25 10:58 AM EDT A Body Mass Index follow-up plan has been documented for the patient 10/31/2024 4:03 PM EDT documented as of this encounter Care Teams Gas Appliance Servicer Helper Relationship Specialty Start Date End Date Megan Fitzgerald MD [address] [place] [address] PCP - General 06/28/24 documented as of this encounter
--- OUTSIDE RECORDS SUMMARY | 2025-02-07 10:51 | XMS_ITS | Data Portability ---
Author Organization [place] [facility] [place] [facility] [place], [facility] Address [address] [place] [phone] Assessment No assessment recorded. Plan of Treatment Reminders Order Date Submit Date Provider Last Modified By Organization Details Last Modified Time Details Appointments OV EST 30 026 08:15AM Filipe Minaya MD Not available Not available Not available Lab None record ed. Referral None record ed. Procedures None record ed. Surgeries None record ed. Imaging None record ed. Medication Orders None record ed. Patient TargetsNo targets recorded. Patient InstructionsNo instructions recorded. Reason for Referral None Reported. Results Created Date Observation Date Name Description Value Unit Range Abnormal Flag Note LastModifiedBy Organization Detail LastModifiedTime 07/18/20 24 07/12/2024 home sleep study No observ ation record ed. [email or web address] Not Available 07/19 09:20:57 Result Notes None recorded. Procedures Surgical History Date Name Laterality Status Provider Name and Address Organization Details Recorded Time 08/23/2016 Other completed Mary Lou Couch [place] [facility] [place] [facility] [place] 07/25/2024 16:16:20 08/23/2015 Other completed Mary Lou Couch [place] [facility] [place] [facility] [place] 07/25/2024 16:16:20 08/23/1992 Other completed Mary Lou Couch [place] [facility] [place] [facility] [place] 07/25/2024 16:16:20 08/23/1991 Other completed Mary Lou Couch [place] [facility] [place] [facility] [place] 07/25/2024 16:16:20 08/23/1989 Other completed Mary Lou Couch [place] [facility] [place] [facility] [place] 07/25/2024 16:16:20 08/23/1975 Other completed Mary Lou Couch [place] [facility] [place] [facility] [place] 07/25/2024 16:16:20 08/23/1973 Other completed Mary Lou FELIZ - [facility] [place] [facility] [place] 07/25/2024 16:16:20 Imaging Results None recorded. Procedure Notes None recorded. Medical Equipment None Reported. Allergies No known drug allergies Medications Name Sig Start Date Stop Date Status Note LastModified by Organization Details LastModified Time furosemide 40 mg tablet TAKE 1 TABLET BY MOUTH ONCE DAILY active Not Available Not Available No t Available atorvastati n 10 mg tablet TAKE 1 TABLET BY MOUTH ONCE DAILY active Not Available Not Available No t Available valacyclovi r 1 gram tablet TAKE 2 TABLETS BY MOUTH IN THE MORNING AND 2 AT BEDTIME DO ALL THIS FOR 1 DAYS active Not Available Not Available No t Available meloxicam 15 mg tablet TAKE ONE TABLET BY MOUTH EVERY DAY --TAKE WITH FOOD-- active Not Available Not Available No t Available potassium chloride ER 10 mEq tablet,exte nded release TAKE ONE TABLET BY MOUTH EVERY DAY WITH FOOD active Not Available Not Available No t Available doxycycline monohydrate 100 mg tablet TAKE 1 TABLET BY MOUTH EVERY 12 HOURS 07/25 completed Not Available Not Available Not Available dexamethaso ne 2 mg tablet TAKE ONE TABLET BY MOUTH EVERY TWELVE HOURS FOR 5 DAYS -- FINISH ALL MEDICINE -- --TAKE WITH FOOD-- 07/25 completed Not Available Not Available Not Available oseltamivir 75 mg capsule TAKE 1 CAPSULE BY MOUTH TWICE DAILY 07/25 completed Not Available Not Available Not Available irbesartan 300 mg-hydrochl orothiazide 12.5 mg tablet TAKE ONE TABLET BY MOUTH EVERY DAY active Not Available Not Available No t Available gabapentin 300 mg capsule TAKE 1 CAPSULE BY MOUTH IN THE MORNING AND 1 CAPSULE BEFORE BEDTIME active Not Available Not Available No t Available hydrochloro thiazide 25 mg tablet TAKE ONE TABLET BY MOUTH EVERY MORNING active Not Available Not Available No t Available furosemide 20 mg tablet TAKE 1 TABLET BY MOUTH IN THE MORNING active Not Available Not Available No t Available gabapentin 100 mg capsule TAKE 1 CAPSULE BY MOUTH IN THE MORNING AND 1 CAPSULE BEFORE BEDTIME active Not Available Not Available No t Available irbesartan 150 mg tablet TAKE ONE TABLET BY MOUTH EVERY DAY 07/25 completed Not Available Not Available Not Available Ventolin HFA 90 mcg/actuati on aerosol inhaler INHALE 2 PUFFS BY MOUTH EVERY 4 TO 6 HOURS NEEDED FOR BREATHING active Not Available Not Available No t Available sodium,pota ssium,mag sulfates 17.5 gram-3.13 gram-1.6 gram oral soln TAKE 6 OUNCES TWICE A DAY BY ORAL ROUTE DIRECTED FOR 1 DAY, FOR COLONOSCO PY PREP active Not Available Not Available No t Available Vitals Date Recorded Body height Body mass index (BMI) Body weight Body temperature Oxygen saturation Oxygen saturation in Arterial blood by Pulse oximetry Heart rate Provider Name and Address Organization Details Last Updated DateTime 5 157.48 cm 41.5 kg/m2 112786. 47 g 98.2 [degF] 96 % 96 % 84 /min Mary Lou Gutierrez [facility] & [place] 5 14:00:47 Date Recorded Body height Body mass index (BMI) Body weight Body temperature Oxygen saturation Oxygen saturation in Arterial blood by Pulse oximetry Heart rate Systolic blood pressure Diastolic blood pressure Provider Name and Address Organization Details Last Updated DateTime 157.48 cm 42.3 kg/m2 142900. 84 g 97.3 [degF] 98 % 98 % 107 /min 120 mm[Hg] 80 mm[Hg] Mary Lou Gutierrez [facility] & [place] 16:20:44 Social History Question Answer Notes LastModified by [email or web address] ion Details LastModified Time Tobacco Smoking Status Never Smoker Mary Lou Gutierrez [facility] & [place] 07/25/2024 16:16:20 Do You Have An Advance Directive? No [email or web address] Information not available 07/25/2024 Are You Blind Or Do You Have Difficulty Seeing? Yes [email or web address] Information not available 07/25/2024 What Was The Date Of Your Most Recent Tobacco Screening? 07/22/2024 [email or web address] Information not available 07/25/2024 Sex: Female Functional Status Question Answer Note LastModified by Organizat ion Details LastModified Time Do you use any illicit or recreational drugs? No [email or web address] Information not available 07/25/2024 What is your level of alcohol consumption? Occasional [email or web address] Information not available 07/25/2024 What is your exercise level? Occasional Information not available 07/25/2024 Mental Status Question Answer Note LastModified by Organization D etails LastModified Time Do you feel stressed (tense, restless, nervous, or anxious, or unable to sleep at night)? [id number] Information not available 07/25/2024 Family History Nothing Reported. Medical History Condition Response Obesity Y Anemia Y Vision or Eye Problems Y High Cholesterol Y Headaches Y Back Problems Y Hypertension Y GI Problems Y Neurological Problems Y Gynecological HistoryNo gynecological history recorded. Obstetrics History GPAL:G 0 P 0 0 0 0 Past Encounters Encounter ID Performer Location Encounter Start Date Encounter Closed Date Diagnosis/Indication Diagnosis SNOMED-CT Code Diagnosis ICD10 Code Diagnosis Note [id number] Filipe Minaya MD [address] [place] [address] 07/25/2024 16:01:41 07/25/2024 16:39:39 Obstructive sleep apnea syndrome 05046728 G47.33 [id number] Filipe Minaya MD [facility] [address] [facility] [place] [address] 12/06/2024 13:53:25 12/06/2024 14:07:02 Obstructive sleep apnea syndrome 55646912 G47.33 no change in settings this time. Counseled regarding need a cleaning machine frequently change mask tubing and filters Health Concerns Section Related Observation LastModified by Organization Detai ls LastModified Time None Recorded Concern Status LastModified by Organization Details LastModified Time None Recorded Advance Directives Directive N: Payers Insurance Date Sequence Insurance Name Policy Number Policy Silva Covered Member ID Silva Member ID Guarantor Name 12/03/2024 1 BCBS[place]: JORJE [place] [id number] Ermias Cervantes [id number] Noemi Cervantes Notes Date Note Type Note Provider Name and Address Organization Details Recorded Time 12/06/2024 text/html He is here for sleep medicine follow-up. She was started on auto PAP for obstructive sleep apnea. She has a try few different mask she now finally has 1 which she feels is comfortable then she can wear through the night. We spent some time looking in her data on her phone and she shows compliance usage. She was wearing her device greater than 4 hours per night with an AHI of less than 5. She reports improvement in snoring and hypersomnia symptoms. Filipe Minaya MD [address], [place], [address], [facility] [place] [facility] [place] 12/06/2024 14:29:28 OBGyn Episode No OBEpisode recorded.
[2025-02-07 11:37] LABS: MANUAL DIFFERENTIAL MANUAL DIFFERENTIAL (MANUAL DIFF)
[2025-02-07 11:51] LABS: Chloride 107 mmol/L (98-107); Potassium 3.4 mmoL/L (3.5-5.1); Sodium 139 mmol/L (136-145)
[2025-02-07 11:54] LABS: Anion Gap 8.4 mEq/L (5-15); Basophils # 0.1 K/mm3 (0-0.2); Basophils % 0.7 % (0.1-2.0); Blood Urea Nitrogen 12 mg/dl (7-17); Carbon Dioxide 27 mmol/L (22.0-30.0); Eosinophils # 0.2 Kmm3 (0.0-0.4); Eosinophils % 2.2 % (0.1-12.0); Estimated Glomerular Filt Rate 105 ml/min (>60); GFR (African American) 127 ML/MIN (>60); Hematocrit 41.2 % (37.0-47.0); Hemoglobin 13.4 g/dL (12.2-16.2); Lymphocytes # 1.9 K/mm3 (0.7-4.5); Lymphocytes % 25.9 % (10-50); Mean Corpuscular HGB Conc 32.5 g/dL (31.8-35.4); Mean Corpuscular Hemoglobin 28.6 pg (27.0-31.2); Mean Platelet Volume 9.9 fl (7.4-10.4); Monocytes # 0.5 K/mm3 (0.1-1.0); Monocytes % 6.6 % (1.7-9.3); Neutrophils # 4.7 K/mm3 (1.8-7.8); Neutrophils % 64.2 % (37.0-80.0); Platelet Count 294 K/mm3 (142-424); Red Blood Count 4.68 M/mm3 (4.20-5.40); Red Cell Distribution Width 13.1 % (11.5-17.5); White Blood Count 7.3 K/mm3 (4.8-10.8)
[2025-02-07 11:55] LABS: Calcium 10.2 mg/dl (8.4-10.2); Glucose 123 mg/dl (74-100)
[2025-02-07 13:47] LABS: Eosinophils % 1 % (0-3); Lymphocytes % 16 % (10-50); Monocytes % 7 % (2-9); Neutrophils % 76 % (42-76); Total Cells Counted 100
[2025-02-07 13:48] LABS: Platelet Estimate Normal; RBC Morphology Normal
== END 2025-02-07 23:59 | disposition home or self-care (01) ==
LOC: PREOP 10:45
PROVIDERS: PCP Family Medicine; Visit Provider Orthopaedic Surgery
DX: Z01.812 Encounter for preprocedural laboratory examination (principal); G56.03 Carpal tunnel syndrome, bilateral upper limbs
CPT/HCPCS: 80048; 85007; 85014; 85018; 85048; 85049

== ENCOUNTER 2025-02-13 08:28 | Day surgery (SDC) | payer BC, SELFPAY ==
[2025-02-07 12:39] VITALS: BMI 42.4
[2025-02-13] VITALS (11 sets, daily range): BP systolic 136–167; BP diastolic 56–99; PULSE 53–83; RESP 12–17; TEMP 36.6–36.7; O2SAT 94–100
--- NOTE | 2025-02-13 10:29 | P.PNANES_ITS ---
[facility] Disclaimer: The information contained in this section may have been updated after the patient was seen, as this information can be updated by other users. Medical History History of burning pain in leg CLAUDINE on CPAP Hypertension Surgical History History of carpal tunnel release History of hysterectomy History of anal fistulotomy History of tubal ligation History of section History of eye surgery Family History Other Family history of cancer Family history of diabetes mellitus Social History Smoking Status: Never smoker alcohol intake: never substance use type: denies use current occupational status: unemployed Travel in the last 8 weeks?: None Have you lived/traveled outside US in past 30 days?: No Contact w/someone who lives/traveled outside US past 30 days?: No Exposure to someone with infectious disease in past 14 days?: No Do you have a fever (greater than 100.4 F or 38 C)?: No Have you tested positive for COVID-19?: No Exposed to someone with COVID-19 in past 14 days?: No Do you have a sore throat?: No Do you have a cough?: No Do you have any weakness?: No Do you have any diarrhea?: No Are you experiencing any unusual bleeding?: No Do you have any muscle aches/pain?: No Do you have any abdominal pain?: No Are you experiencing loss of taste or smell?: No [facility] Anesthesia Checklist Patient Identification Patient Identification: Arm Band and Verbal (Name & ) Structural Data Admitted From: Home Planned Operative Procedure/s: Left CTR Consent for Planned Operative Procedure(s) Verified: Yes Verified Documents: Surgical Consent NPO Status Verified Time NPO: 00:00 Chart Verification Results Verified: ECG Additional verifications Anesthesia Reactions: No Hx Blood Transfusions: No Blood Transfusion Reaction: No Airway Assessment Mallampati Score:: Class II C-Spine Mobility Assessed: Yes TMJ Mobility Assessed: Yes Dentition: Good Dentition Neurological Assessment Level of Consciousness: Awake, Alert and Appropriate Hx Seizures: No Numbness or tingling in extremities: No Anesthesia Plan Anesthesia Risk discussed: Yes Anesthesia Plan: Verified ASA Class: II Anesthesia Type: MAC
[2025-02-13] MEDS: CEFAZOLIN SODIUM 2 GM in 0.9 % SODIUM CHLORIDE 100 ML IV (11:56)
[2025-02-13] MEDS: LIDOCAINE 1% W/EPI 1:100,000 20ML VIAL 20 ML (12:17)
--- NOTE | 2025-02-13 12:36 | P.OP_ITS ---
Date of procedure: 02/13/25 Pre-op Diagnosis:: Left carpal tunnel syndrome Post-op Diagnosis:: Same Procedure performed:: Left endoscopic carpal tunnel release Surgeon:: Lukas Pinon DO Computer Repair Technician(s):: KELLEN TAVERN OPERATOR:: Manuel Vergara Anesthesia: LMA Estimated blood loss (mL): 0 Operative findings:: See dictation Operative note:: Patient identified preoperatively. Left wrist marked with yes and my initials. Transported operative suite. Placed upon the operating bed with a hand table general anesthesia administered airway secured with LMA left upper extremities and prepped and draped in normal sterile fashion. Once prepped and draped final operative timeout performed to identify proper patient procedure and extremity. Everyone involved in the case agreed. There were no counter indications to beginning. She did receive preoperative antibiotics. Marking pen was used to amirah planned incision over the volar wrist crease. Esmarch was used to exsanguinate the extremity pneumatic tourniquet inflated to 250 mmHg. Skin knife was used incise the skin careful dissection was taken down with the scissors and retractors were placed to identify the most proximal asp ect of the transverse carpal ligament once identified the smaller dilator followed by the larger dilator were placed into the carpal tunnel under the transverse carpal ligament this was then switched with a 4.0 mm left sided sled and the camera was placed into the carpal tunnel transverse carpal ligament clearly seen superiorly within the picture. The endoscopic hook was used to identify the most distal aspect of the transverse carpal ligament the rasp was utilized to remove the soft tissue from the undersurface and then the hook blade from the [employer] endoscopic carpal tunnel set was utilized to transect the transverse carpal ligament fully released the carpal tunnel. This was directly visualized sled was then removed irrigation of the wound performed skin closed with Monocryl stitch and Steri-Strips hand dressing placed patient waken anesthesia taken recovery in stable condition. Condition: stable Disposition: PACU Complications:: None apparent
--- NOTE | 2025-02-13 12:45 | EXP.ANES.I ---
[facility] Anesthesia Record Part I Anesthesia Record I Intake, IV Amount: 1,200 Hydration: Adequate Estimated blood loss (mL): 0 Urine output (mL): 0 Blood Pressure: 167/80 SaO2: 94 Pulse Rate: 83 Airway Patency: Patent Respiratory Rate: 12 Temperature: 97.8 F Patient is:: Awake and Stable Stable to PACU at:: 12:40
[2025-02-13] MEDS: MORPHINE 2MG/ML SYRINGE 1 MG IV ×4 (13:12→13:31)
[2025-02-13] MEDS: KETOROLAC 30MG/ML VIAL 30 MG IV (13:21)
--- NOTE | 2025-02-13 13:25 | P.PNANES_ITS ---
[facility] Anesthesia Record Part II Anesthesia Record Part II Discharge Time: 13:20 Destination: Surgical Day Care (OP Surgery) PACU nurse assessment reviewed?: Yes Patient Condition:: Good Anesthesia Complications:: None Swallowing reflex intact?: Yes Airway Patency: Patent Cyanosis?: No Blood Pressure: 156/56 SaO2: 99 Respiratory Rate: 16 Pulse Rate: 54 Temperature: 98 F Mental Status: Alert & Oriented Pain level:: 5 Nausea and/or vomitting:: None Intake, IV Amount: 0 Hydration: Adequate
== END 2025-02-13 14:07 | disposition home or self-care (01) ==
PROVIDERS: PCP Family Medicine; Visit Provider Orthopaedic Surgery
PROC: (CPT 64721; principal; 2025-02-13 10:00)
DX: G56.02 Carpal tunnel syndrome, left upper limb (principal); I10 Essential (primary) hypertension; Z79.899 Other long term (current) drug therapy
CPT/HCPCS: 29848; 96374; J0690; J1100; J1885; J2003; J2004; J2250; J2270; J2405; J2704; J3010